=== PATIENT | female | born 1945 ===

== ENCOUNTER 2020-03-16 13:09 | Outpatient (REF) | payer MEDICARE, SELFPAY ==
--- NOTE | 2020-03-16 13:33 | CT_ITS ---
EXAMINATION: CT CHEST WITHOUT CONTRAST CLINICAL INFORMATION: Nonspecific abnormal chest finding. COMPARISON: CT chest 10/01/2019 TECHNIQUE: Multidetector volumetric CT imaging of the chest was done. Axial MIP volume rendering provided. Sagittal and coronal reformatted images were obtained. This CT examination was performed using dose optimization techniques as appropriate, variously including the following: Automated exposure control. Adjustment of mA and/or kV according to patient size (this includes techniques or standardized protocols for targeted exams where dose is matched to indication/reason for exam; i.e. extremities or head). Use of iterative reconstruction technique. DLP: 137 mGy-cm FINDINGS: TREE MARKER: Hyperinflated lungs. LUNGS: There is diffuse centrilobular emphysema without acute pneumonic consolidation. Several pulmonary nodules seen. There is an ill-defined 3 x 2 mm nodule right upper lobe axial image 137/7, previously appeared more linear density, but stable in length. There is a mild ground-glass ill-defined density left upper lobe laterally, measuring 1.8 cm on axial image 265/7, better visualized on series 8. There is 6 mm and 7 mm nodules right lower lobe axial image 412/7 and 415/7 respectively. Approximately same size as before. No additional nodules seen. There is focal atelectasis in the lingula. There is a pleural-based 4 mm nodule right lower lobe axial image 455/7, stable. No additional nodules seen. MEDIASTINUM: There is an enlarged left thyroid lobe with 2 large nodules measuring 2.6 cm anteriorly and 2.8 cm posteriorly, slightly increased in size from previous study. They measured 2.3 cm and 2.4 cm respectively. The trachea is mildly deviated to the right. The central trachea and the bronchi are otherwise widely patent. Small shotty lymph nodes in the mediastinum. Heart size and the great vessels are normal caliber. There is mild coronary artery calcifications present. No pericardial effusion. PLEURA: There is no pleural effusion. No pleural mass or thickening. AXILLA: Small shotty lymph nodes seen in the axilla. The chest wall is unremarkable. UPPER ABDOMEN: Visualized liver, spleen and pancreas are unremarkable. Gallbladder has been surgically removed. OSSEOUS STRUCTURES: No lytic or sclerotic process seen. There is mild ventral spondylosis. IMPRESSION: Diffuse centrilobular emphysema with multiple pulmonary nodules essentially stable. Largest nodule is 7 mm. As per Fleischner guideline, a follow up can be performed in 18-24 months based on risk factors. Two left thyroid lobe nodules have slightly increased in size since 10/01/2019. If clinically indicated ultrasound imaging can be performed.
== END 2020-03-16 13:10 | disposition home or self-care (01) ==
LOC: HO.CT 13:09
PROVIDERS: Visit Provider Hospitalist
DX: R91.8 Other nonspecific abnormal finding of lung field (principal)
CPT/HCPCS: 71250

== ENCOUNTER → 2020-07-23 10:20 | Outpatient (BNVA) | payer MEDICARE, SELFPAY | PROVIDERS: PCP Internal Medicine; Visit Provider Hospitalist | DX: R91.8 Other nonspecific abnormal finding of lung field (principal); J43.2 Centrilobular emphysema; J96.11 Chronic respiratory failure with hypoxia | CPT/HCPCS: 99212 ==

== ENCOUNTER 2020-11-02 13:02 | Outpatient (REF) | payer MEDICARE, SELFPAY ==
--- NOTE | ~2020-11-02 | CT_ITS ---
EXAMINATION: CT CHEST WITHOUT CONTRAST CLINICAL INFORMATION: Follow-up pulmonary nodule COMPARISON: Previous chest CT most recent February 2020 TECHNIQUE: Multidetector volumetric CT imaging of the chest was done. Axial MIP volume rendering provided. Sagittal and coronal reformatted images were obtained. This CT examination was performed using dose optimization techniques as appropriate, variously including the following: *Automated exposure control *Adjustment of mA and/or kV according to patient size (this includes techniques or standardized protocols for targeted exams where dose is matched to indication/reason for exam; i.e. extremities or head) *Use of iterative reconstruction technique DLP: 126 mGy-cm FINDINGS: LUNGS: There is evidence of emphysema. The bilateral pulmonary nodules are stable. Largest pulmonary nodules measure 6 and 7 mm in the right lower lobe axial image 406 and 412 series 7 and are stable. There is a heterogeneous cystic area in the left upper lobe with slightly thickened wall and increased peripheral groundglass attenuation. This measures 1.4 x 1.8 cm axial image 266 series 7 and is stable. No new pulmonary nodule. MEDIASTINUM: The left lobe of the thyroid gland is enlarged. There are multiple left thyroid nodules that are stable. There are small mediastinal lymph nodes. No enlarged lymph nodes are seen. The heart does not appear enlarged. There is coronary artery calcification. There is no pericardial effusion. PLEURA: There is no pleural effusion. No pleural mass or thickening. AXILLA: No lymphadenopathy. UPPER ABDOMEN: The gallbladder has been removed. OSSEOUS STRUCTURES: There are mild degenerative changes of the spine. CT/CT chest wo con IMPRESSION: Emphysema. Stable pulmonary nodules. Coronary artery calcification. Enlarged left lobe of the thyroid gland. Stable left thyroid nodules.
== END 2020-11-02 13:03 | disposition home or self-care (01) ==
LOC: HO.CT 13:02
PROVIDERS: Visit Provider Hospitalist
DX: R91.8 Other nonspecific abnormal finding of lung field (principal)
CPT/HCPCS: 71250

== ENCOUNTER → 2020-11-12 10:44 | Outpatient (BNVA) | payer MEDICARE, SELFPAY | PROVIDERS: PCP Internal Medicine; Visit Provider Hospitalist | DX: J96.11 Chronic respiratory failure with hypoxia (principal); J43.2 Centrilobular emphysema; R91.8 Other nonspecific abnormal finding of lung field | CPT/HCPCS: 99212 ==

== ENCOUNTER 2021-09-30 12:52 | Outpatient (REF) | payer MEDICARE, SELFPAY ==
--- NOTE | ~2021-09-30 | CT_ITS ---
EXAMINATION: CT CHEST WITHOUT CONTRAST CLINICAL INFORMATION: Pulmonary nodules COMPARISON: Previous chest CT most recent October 2020 TECHNIQUE: Multidetector volumetric CT imaging of the chest was done. Axial MIP volume rendering provided. Sagittal and coronal reformatted images were obtained. This CT examination was performed using dose optimization techniques as appropriate, variously including the following: *Automated exposure control *Adjustment of mA and/or kV according to patient size (this includes techniques or standardized protocols for targeted exams where dose is matched to indication/reason for exam; i.e. extremities or head) *Use of iterative reconstruction technique DLP: 145 mGy-cm FINDINGS: LUNGS: There is evidence of emphysema. There is an area of cystic and reticular change in the left upper lobe. This measures 1.2 cm in transverse and AP dimension axial image 291 series 7. This does not appear appreciably changed from previous exams. The small solid pulmonary nodules are stable. Largest solid pulmonary nodules measure 6 mm in the right lower lobe axial image 423 and 426 series 7. No new pulmonary nodule is seen. MEDIASTINUM: There the left lobe of the thyroid gland is enlarged with multiple nodules. This is stable. The heart size is normal. There is coronary artery calcification. There is no pericardial effusion. The thoracic aorta is normal in caliber. There are no enlarged hilar or mediastinal lymph nodes. PLEURA: There is no pleural effusion. No pleural mass or thickening. AXILLA: No lymphadenopathy. UPPER ABDOMEN: The gallbladder has been removed. OSSEOUS STRUCTURES: There are degenerative changes of the spine. CT/CT chest wo con IMPRESSION: Emphysema. Stable small pulmonary nodules largest measuring 6 mm in the right lower lobe. Stable area of cystic and reticular change measuring 1.2 cm in the left upper lobe. Coronary artery calcification. Fleischner guidelines were followed.
== END 2021-09-30 12:53 | disposition home or self-care (01) ==
LOC: HO.CT 12:52
PROVIDERS: PCP Internal Medicine; Visit Provider Hospitalist
DX: R91.8 Other nonspecific abnormal finding of lung field (principal)
CPT/HCPCS: 71250

== ENCOUNTER → 2021-11-09 09:36 | Outpatient (BNVA) | payer MEDICARE, SELFPAY | PROVIDERS: PCP Internal Medicine; Visit Provider Hospitalist | DX: J43.2 Centrilobular emphysema (principal); J96.11 Chronic respiratory failure with hypoxia; R91.8 Other nonspecific abnormal finding of lung field; E05.90 Thyrotoxicosis, unspecified without thyrotoxic crisis or storm; Z79.899 Other long term (current) drug therapy | CPT/HCPCS: 99212 ==

== ENCOUNTER 2021-12-28 09:49 | Outpatient (REF) | payer MEDICARE, SELFPAY ==
--- NOTE | 2021-12-28 11:13 | PFT_ITS ---
Forced vital capacity 27%, FEV1 17%. [id number] 10% and MVV 17%. Post bronchodilator therapy, there is significant improvement in all flow volumes. Lung volumes; total lung capacity 90%, residual volume 153%. Diffusion capacity is 15%. CONCLUSION: Very severe obstructive airway disorder with evidence of air trapping. Good response to bronchodilator therapy with partial reversibility. 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 Clinical correlation is recommended. MD ANNA Jain/[facility] / [id number]
== END 2021-12-28 09:50 | disposition home or self-care (01) ==
LOC: HO.RESP 09:49
PROVIDERS: PCP Internal Medicine; Visit Provider Hospitalist
DX: J43.2 Centrilobular emphysema (principal)
CPT/HCPCS: 94060; 94727; 94729

== ENCOUNTER 2022-06-30 09:36 | Outpatient (REF) | payer MEDICARE, SELFPAY ==
--- NOTE | ~2022-06-30 | CT_ITS ---
EXAMINATION: CT CHEST WITHOUT CONTRAST CLINICAL INFORMATION: Follow-up pulmonary nodules. COMPARISON: Previous chest CTs most recent 09/30/2021. TECHNIQUE: Multidetector volumetric CT imaging of the chest was done. Axial MIP volume rendering provided. Sagittal and coronal reformatted images were obtained. This CT examination was performed using dose optimization techniques as appropriate, variously including the following: *Automated exposure control *Adjustment of mA and/or kV according to patient size (this includes techniques or standardized protocols for targeted exams where dose is matched to indication/reason for exam; i.e. extremities or head) *Use of iterative reconstruction technique DLP: 121 mGy-cm FINDINGS: LUNGS: Emphysema. Biapical pleural parenchymal scarring. Unchanged area of cystic and reticular change in the left upper lobe measuring 1.4 x 1.4 cm. Multiple pulmonary nodules are stable. Largest measures 5 mm series 5 image 434. No new pulmonary nodule is seen. MEDIASTINUM: There is abnormal subcutaneous gas on the uppermost images of the scan which does not appear to be related to a skin fold. There is some subcutaneous induration same location. Recommend clinical correlation for signs of soft tissue infection. CORONARY ARTERY CALCIFICATION: Present PLEURA: There is no pleural effusion. No pleural mass or thickening. AXILLA: No lymphadenopathy. UPPER ABDOMEN: Cholecystectomy. OSSEOUS STRUCTURES: Degenerative changes in the spine. CT/CT chest wo IV con IMPRESSION: Stable pulmonary nodules. Abnormal subcutaneous air and soft tissue reticulation in the lower neck at the top most portion of the exam. Recommend clinical correlation for signs of soft tissue infection. If clinically indicated recommend CT of the neck without and with contrast. Fleischner guidelines were followed.
== END 2022-06-30 09:37 | disposition home or self-care (01) ==
LOC: HO.CT 09:36
PROVIDERS: PCP Internal Medicine; Visit Provider Hospitalist
DX: R91.8 Other nonspecific abnormal finding of lung field (principal)
CPT/HCPCS: 71250

== ENCOUNTER → 2022-08-10 09:18 | Outpatient (BNVA) | payer MEDICARE, SELFPAY | PROVIDERS: PCP Internal Medicine; Visit Provider Hospitalist | DX: J96.11 Chronic respiratory failure with hypoxia (principal); J43.2 Centrilobular emphysema; R91.8 Other nonspecific abnormal finding of lung field; Z80.1 Family history of malignant neoplasm of trachea, bronchus and lung; Z99.81 Dependence on supplemental oxygen | CPT/HCPCS: 99212 ==

== ENCOUNTER 2023-02-08 10:52 | Outpatient (AMB) | payer MEDICARE, SELFPAY ==
[2023-02-08 11:20] VITALS: BP 128/70; PULSE 85; O2SAT 97; BMI 22.1
--- NOTE | 2023-02-08 11:20 | A.OFFVIS_ITS ---
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 She continues to have dyspnea on exertion. Mild to mederate in severity. Better with rest. She is to continue using oxygen with activity. She is waiting for a portable oxygen concentrator. She cannot carry the tanks with her because they do not provide enough portability in there for dionot provide her with the oxygen supplementation that she needs. Therefore, I will request the [facility] facilitates her portable oxygen concentrator so that she can have enough oxygen supplementation while she is out of the house. She continues to participate in pulmonary rehabilitation with good results. She continues her nebulized therapy. She is not taking any inhaler therapy except for her trach beta agonist. She has tried azithromycin in the past with good effect. We did talk about Daliresp as an option but she is not interested at this time as she is having GI symptoms due to other issues. She continues to use the nebulizer 4 times a day. She continues use her oxygen with a portable oxygen concentrator on a regular basis with good effect. We did review her CT scan of the chest demonstrating multiple nodules largest 1 measuring 7 mm. I will make sure she has a rescue inhaler available. Therefore, will continue following closely her CT scan. The next CT scan will be early fall. 07/23/2020 the patient is here for pulmonary follow-up visit. Overall she is doing about the same. Continues to have dyspnea on exertion with activity. Moderate severity. The oxygen has been helpful. She continues with current respiratory regimen. She is grieving the loss of her sister who of lung cancer. She is going to have him more also worsen may with her family. In the meantime we did talk about pulmonary nodules. Largest nodule measuring 7 mm. The patient will undergo a CT scan of the chest sometime after her memorial service in September. She did stop the azithromycin. She is doing well without it and continues with the current respiratory regimen. 11/12/2020 the patient is here for pulmonary follow-up visit. She continues to have dyspnea on exertion mild in severity. The nebulized therapy has been helpful. She does use it on a daily basis. She did undergo a CT scan of the chest demonstrating multiple intermediate size pulmonary nodules. She does carry a family history of lung cancer which she is concerned about. She did well stopping the azithromycin no significant congestion of the chest. At this point will plan to follow-up in [address] scan of the chest to make sure the pulmonary nodules are not progressing. 11/09/2021 the patient is here for a pulmonary follow-up visit. Since we last spoke she has been dealing with Graves disease. He is not responding to therapy. She has lost significant amount of weight. She is scheduled to see the surgeon for potential thyroidectomy. In the meantime the patient continues to have her underlying respiratory symptoms. She has had worsening shortness of breath and chest tightness in the last few weeks likely from the spring season. She has been using the budesonide once a day. She also has been using the albuterol about 3 times a day. We did talk about trying some prednisone but the patient was reluctant to do so. Will go ahead and increase her budesonide to twice a day. Will also plan for her to undergo pulmonary function studies prior to her surgery in case the request of preop evaluation. The patient also had a CT scan of the chest in September 2021 which we personally reviewed together. It appears that she has subcentimeter pulmonary nodules that are solid in nature. Does have not changed when compared to last year's CT scan. However, she does have a left upper lobe cystic ground-glass the nodular density that does measuring more than a cm and appears to be somewhat concerning in appearance. However, appears to be a smoldering process. Will go ahead and plan to repeat the CT scan in 8-12 months. If the patient has any worsening symptoms prior to that she is to call for an earlier evaluation. 08/10/2022 the patient is here for a pulmonary follow-up visit. The patient is status post surgery she had back in May. The surgery went well. Postoperatively she did have some hypoxia but then improved. Overall she is at her baseline at this time. The area healed well. After her surgery approximately a few days she did have a CT scan of the chest to follow up with her pulmonary nodules. Because of the recent surgery she did have significant inflammation and changes in the upper chest and neck area that were consistent with her surgery. Therefore no further follow-up is warranted from that standpoint. However, the patient does have extensive emphysema on her CT scan which is very dramatic with significant air trapping hyperinflation. We did review her pulmonary function studies and she does have significant COPD very severe based on the FEV1 down to about 23%. In addition to that she has significant air trapping and very severe diffusion impairment. When she came in to the pulmonary Function Study lab she was upset because the respiratory therapist emphasize that she had to use the oxygen specially when driving based on the fact that her diffusing capacity was so low and could be dangerous. She was upset about that however, I also did emphasize the same day the patient should be using her oxygen when she is driving or she can potentially find herself in a dangerous situation which she can hurt herself or others. The patient is agreeable at this time to always have her oxygen with her when she is driving. Based on the severe degree of her pulmonary function studies off her get a venous gas this assess her CO2 to make sure that the patient does not qualify for noninvasive ventilation at nighttime. 02/08/2023 the patient is here for a pulmonary follow-up visit. The patient otherwise is about the same. Complains of dyspnea on exertion. The patient has been using the oxygen with good effect. Unfortunately her portable oxygen concentrator broke down and therefore she is had to use oxygen tanks and she is not very happy with that. She is using the oxygen for sleep. She was supposed to have blood work in addition to a venous blood gas but she has not had as of yet. She will be getting blood work elsewhere therefore I did give her add itional blood work for her to take. However, we will not be able to the blood gas. At least we can check her CO2 with a bicarbonate and see if it is stable. The reason for the blood gases to see if the patient will benefit from noninvasive ventilator. She continues use her nebulized therapy. She does use it at least twice a day. The therapy is partially helpful. Her last CT scan of the chest demonstrated stable pulmonary nodules. Therefore will readdress any additional imaging studies during the next visit. [facility] Medical History (Updated 11/09/21 @ 21:10 by Otis Arceo MD) Chronic respiratory failure Centrilobular emphysema Pulmonary nodules Social History (Updated 11/09/21 @ 09:59 by KARTHIK Schumacher) Patient Tobacco Use Status: Former Tobacco user Tobacco use type: Cigarette Years Smoked: 50 years Advance Directives Date on File: 03/16/20 Review of Systems Const Denies night sweats and Reports weight loss ENT Denies change in voice, Denies lip swelling, Denies mouth pain, Reports nasal congestion, Reports nasal discharge and Denies tongue swelling Card Denies chest pain and Reports dyspnea on exertion Resp Reports cough, Reports dyspnea on exertion and Reports wheezing GI Denies abdominal pain Musc Denies no additional complaints Skin/Breast Denies rash Neuro Denies Neuro-related abnormal movements Psych Denies no additional complaints Juan Manuel/Lymph Denies easy bleeding and Denies lymphadenopathy Aller/Immun Denies lip swelling, Denies tongue swelling and Reports wheezing Physical Exam Vital Signs: Last Vital Signs Pulse 85 02/08/23 11:20 BP 128/70 02/08/23 11:20 Pulse Ox 97 02/08/23 11:20 Oxygen Delivery Method Room Air 02/08/23 11:20 Oxygen Flow Rate 12,870 02/08/23 11:20 BMI result Body Mass Index 22.1 Const General: comfortable and alert Nutritional Appearance: underweight HEENT Head: Yes normocephalic Eyes General: appearance normal, both eyes and all related structures Neck Neck: Yes normal visual inspection, Yes full ROM and Yes no lymphadenopathy Chest Chest palpation & inspection: normal inspection of the chest Resp Effort & Inspection: normal respiratory effort Auscultation: no wheezes and diminished lung sounds Cardio Rate: regular rate Rhythm: regular rhythm Heart sounds: S1 normal heart sound present and S2 normal heart sound present GI Palpation (GI): Soft to palpation and nontender Auscultation: normal bowel sounds Skin General skin exam: no rashes or lesions noted Extrem General: No cyanosis and No edema Assessment & Plan Assessment & Plan (1) Chronic respiratory failure: Code(s): J96.10 - Chronic respiratory failure, unspecified whether with hypoxia or hypercapnia Qualifiers: Respiratory failure complication: hypoxia Qualified Code(s): J96.11 - Chronic respiratory failure with hypoxia (2) Centrilobular emphysema: Code(s): J43.2 - Centrilobular emphysema (3) Pulmonary nodules: Code(s): R91.8 - Other nonspecific abnormal finding of lung field Plan budesonide twice a day Continue albuterol 3 times a day Oxygen supplementation. Needs to use it always when driving Readdress additional imaging studies during her f/u visit bloodwork Follow-up in 6 months Medications: New levalbuterol HCl 1.25 mg (3 mL) inhalation BID 30 days 180 mL 0RF J44.9 - Chronic obstructive pulmonary disease, unspecified cetirizine (Zyrtec) 10 mg PO DAILY 30 days 30 tabs 5RF Coding Level of Care Code Est Pt Level 4 (17091) Diagnoses Chronic respiratory failure with hypoxia J96.11 Respiratory failure complication: hypoxia Centrilobular emphysema J43.2 Pulmonary nodules R91.8 Time Spent (min) 17
== END 2023-02-08 11:41 | disposition home or self-care (01) ==
PROVIDERS: PCP Internal Medicine; Visit Provider Hospitalist
DX: J96.11 Chronic respiratory failure with hypoxia (principal); J43.2 Centrilobular emphysema; R91.8 Other nonspecific abnormal finding of lung field
CPT/HCPCS: 99214

== ENCOUNTER → 2023-02-08 10:52 | Outpatient (BNVA) | payer MEDICARE, SELFPAY | PROVIDERS: PCP Internal Medicine; Visit Provider Hospitalist | DX: J96.11 Chronic respiratory failure with hypoxia (principal); R91.8 Other nonspecific abnormal finding of lung field; J43.2 Centrilobular emphysema | CPT/HCPCS: 99212 ==

== ENCOUNTER 2023-08-09 11:01 | Outpatient (AMB) | payer MEDICARE, SELFPAY ==
--- NOTE | 2023-08-09 11:07 | A.OFFVIS_ITS ---
Intake Vital Signs 08/09/23 11:10 Height 5 ft 7 in Weight 140 lb BMI 21.9 Pulse 91 Pulse Source Pulse Oximeter Pulse Oximetry (%) 97 Oxygen Delivery Method Room Air Comment 2 Liters Oxygen([facility]) Intake Visit Reasons: COPD follow-up Allergies albuterol Allergy (Severe, Verified 08/09/23 11:12) Skin Peeling sitagliptin [From Januvia] Adverse Reaction (Severe, Verified 08/09/23 11:12) Blister HPI HPI Comments History of Present Illness Details The patient is a 78 y/o woman with COPD. She continues to have dyspnea on exertion. Mild to mederate in severity. Better with rest. She is to continue using oxygen with activity. She is waiting for a portable oxygen concentrator. She cannot carry the tanks with her because they do not provide enough portability in there for dionot provide her with the oxygen supplementation that she needs. Therefore, I will request the [facility] facilitates her portable oxygen concentrator so that she can have enough oxygen supplementation while she is out of the house. She continues to participate in pulmonary rehabilitation with good results. She continues her nebulized therapy. She is not taking any inhaler therapy except for her trach beta agonist. She has tried azithromycin in the past with good effect. We did talk about Daliresp as an option but she is not interested at this time as she is having GI symptoms due to other issues. She continues to use the nebulizer 4 times a day. She continues use her oxygen with a portable oxygen concentrator on a regular basis with good effect. We did review her CT scan of the chest demonstrating multiple nodules largest 1 measuring 7 mm. I will make sure she has a rescue inhaler available. Therefore, will continue following closely her CT scan. The next CT scan will be early fall. 08/10/2022 the patient is here for a pulm onary follow-up visit. The patient is status post surgery she had back in May. The surgery went well. Postoperatively she did have some hypoxia but then improved. Overall she is at her baseline at this time. The area healed well. After her surgery mirna roximately a few days she did have a CT scan of the chest to follow up with her pulmonary nodules. Because of the recent surgery she did have significant inflammation and changes in the upper chest and neck area that were consistent with her surgery. Therefore no further follow-up is warranted from that standpoint. However, the patient does have extensive emphysema on her CT scan which is very dramatic with significant air trapping hyperinflation. We did review her pulmonary function studies and she does have significant COPD very severe based on the FEV1 down to about 23%. In addition to that she has significant air trapping and very severe diffusion impairment. When she came in to the pulmonary Function Study lab she was upset because the respiratory therapist emphasize that she had to use the oxygen specially when driving based on the fact that her diffusing capacity was so low and could be dangerous. She was upset about that however, I also did emphasize the same day the patient should be using her oxygen when she is driving or she can potentially find herself in a dangerous situation which she can hurt herself or others. The patient is agreeable at this time to always have her oxygen with her when she is driving. Based on the severe degree of her pulmonary function studies off her get a venous gas this assess her CO2 to make sure that the patient does not qualify for noninvasive ventilation at nighttime. 02/08/2023 the patient is here for a pulmonary follow-up visit. The patient otherwise is about the same. Complains of dyspnea on exertion. The patient has been using the oxygen with good effect. Unfortunately her portable oxygen concentrator broke down and therefore she is had to use oxygen tanks and she is not very happy with that. She is using the oxygen for sleep. She was supposed to have blood work in addition to a venous blood gas but she has not had as of yet. She will be getting blood work elsewhere therefore I did give her additional blood work for her to take. However, we will not be able to the blood gas. At least we can check her CO2 with a bicarbonate and see if it is stable. The reason for the blood gases to see if the patient will benefit from noninvasive ventilator. She continues use her nebulized therapy. She does use it at least twice a day. The therapy is partially helpful. Her last CT scan of the chest demonstrated stable pulmonary nodules. Therefore will readdress any additional imaging studies during the next visit. 08/09/2023 the patient is here for a pulmonary follow-up visit. She continues to use her oxygen with good effect. The patient does have dyspnea on exertion moderate severity. She typically does not do too much to try to minimize on the symptoms. The patient does have extensive emphysema. We did talk about considering a noninvasive ventilator and checking her CO2. Although she is adamant that she does want to use any kind of noninvasive ventilation at this time. Therefore hold off on checking a blood gas unless she becomes symptomatic. Also, we did look at her last CT scan of the chest. Was back in 2021. She has multiple pulmonary nodules and also extensive emphysema. Although since the patient is asymptomatic will hold off on any imaging studies. The patient is agreeable to this. If however she develops any worsening symptoms we can always repeat her imaging at that time. [facility] Medical History (Updated 11/09/21 @ 21:10 by Otis Arceo MD) Chronic respiratory failure Centrilobular emphysema Pulmonary nodules Social History (Updated 11/09/21 @ 09:59 by KARTHIK Schumacher) Patient Tobacco Use Status: Former Tobacco user Tobacco use type: Cigarette Years Smoked: 50 years Advance Directives Date on File: 03/16/20 Review of Systems Const Denies night sweats and Reports weight loss ENT Denies change in voice, Denies lip swelling, Denies mouth pain, Reports nasal congestion, Reports nasal discharge and Denies tongue swelling Card Denies chest pain and Reports dyspnea on exertion Resp Reports cough, Reports dyspnea on exertion and Reports wheezing GI Denies abdominal pain Musc Denies no additional complaints Skin/Breast Denies rash Neuro Denies Neuro-related abnormal movements Psych Denies no additional complaints Juan Manuel/Lymph Denies easy bleeding and Denies lymphadenopathy Aller/Immun Denies lip swelling, Denies tongue swelling and Reports wheezing Physical Exam Vital Signs: Last Vital Signs Pulse 91 08/09/23 11:10 Pulse Ox 97 08/09/23 11:10 Oxygen Delivery Method Room Air 08/09/23 11:10 BMI result Body Mass Index 21.9 Const General: comfortable and alert Nutritional Appearance: underweight HEENT Head: Yes normocephalic Eyes General: appearance normal, both eyes and all related structures Neck Neck: Yes normal visual inspection, Yes full ROM and Yes no lymphadenopathy Chest Chest palpation & inspection: normal inspection of the chest Resp Effort & Inspection: normal respiratory effort Auscultation: no wheezes and diminished lung sounds Cardio Rate: regular rate Rhythm: regular rhythm Heart sounds: S1 normal heart sound present and S2 normal heart sound present GI Palpation (GI): Soft to palpation and nontender Auscultation: normal bowel sounds Skin General skin exam: no rashes or lesions noted Extrem General: No cyanosis and No edema Assessment & Plan Assessment & Plan (1) Chronic respiratory failure: Code(s): J96.10 - Chronic respiratory failure, unspecified whether with hypoxia or hypercapnia Qualifiers: Respiratory failure complication: hypoxia Qualified Code(s): J96.11 - Chronic respiratory failure with hypoxia (2) Centrilobular emphysema: Code(s): J43.2 - Centrilobular emphysema (3) Pulmonary nodules: Code(s): R91.8 - Other nonspecific abnormal finding of lung field Plan budesonide twice a day Continue albuterol 3 times a day Oxygen supplementation. Needs to use it always when driving Pt agrees with holding further imaging at this time. If any symptoms worsen she will call to readdress Pt is not interested in NIV therapy Follow-up in 8-12 months Coding Level of Care Code Est Pt Level 4 (67947) Diagnoses Chronic respiratory failure with hypoxia J96.11 Respiratory failure complication: hypoxia Centrilobular emphysema J43.2 Pulmonary nodules R91.8 Time Spent (min) 16
[2023-08-09 11:10] VITALS: PULSE 91; O2SAT 97; BMI 21.9
== END 2023-08-09 11:32 | disposition home or self-care (01) ==
PROVIDERS: PCP Internal Medicine; Visit Provider Hospitalist
DX: J96.11 Chronic respiratory failure with hypoxia (principal); J43.2 Centrilobular emphysema; R91.8 Other nonspecific abnormal finding of lung field
CPT/HCPCS: 99214

== ENCOUNTER → 2023-08-09 11:01 | Outpatient (BNVA) | payer MEDICARE, SELFPAY | PROVIDERS: PCP Internal Medicine; Visit Provider Hospitalist | DX: J44.9 Chronic obstructive pulmonary disease, unspecified (principal); R91.8 Other nonspecific abnormal finding of lung field; J43.2 Centrilobular emphysema; J96.11 Chronic respiratory failure with hypoxia; Z99.81 Dependence on supplemental oxygen | CPT/HCPCS: 99212 ==

== ENCOUNTER 2024-04-04 09:19 | Outpatient (AMB) | payer MEDICARE, SELFPAY ==
[2024-04-04 09:23] VITALS: BP 120/68; PULSE 84; O2SAT 98
--- NOTE | 2024-04-04 09:23 | A.OFFVIS_ITS ---
Vital Signs 04/04/24 09:23 Weight 143 lb 4.807 oz BP 120/68 Blood Pressure Location Rt brachial Position Sitting Pulse 84 Pulse Source Pulse Oximeter Pulse Oximetry (%) 98 Oxygen Delivery Method Room Air Intake Visit Reasons: copd Allergies albuterol Allergy (Severe, Verified 04/04/24 09:27) Skin Peeling sitagliptin [From Januvia] Adverse Reaction (Severe, Verified 04/04/24 09:27) Blister Medication List - Last Reconciled 04/04/24 by Aparna Reyes LPN albuterol sulfate 2.5 mg (3 mL) inhalation Q4H PRN albuterol sulfate 90 mcg/actuation 2 puffs PO Q6H PRN budesonide 0.5 mg (2 mL) inhalation BID cetirizine (Zyrtec) 10 mg PO DAILY 30 days chlorhexidine gluconate 0.12% PO glipizide 5 mg PO BID hydrochlorothiazide 12.5 mg PO DAILY ketorolac 0.5% 1 drp ophthalmic-Right QID levalbuterol HCl 1.25 mg (3 mL) inhalation BID 30 days metformin 1,000 mg PO DAILY nebulizers As directed ofloxacin 0.3% 1 drp ophthalmic-Right QID omeprazole 20 mg PO DAILY Oxygen Home Use As directed simvastatin 20 mg PO BEDTIME HPI Comments Details: The patient is a 79 y/o woman with COPD. She continues to have dyspnea on exertion. Mild to mederate in severity. Better with rest. She is to continue using oxygen with activity. She is waiting for a portable oxygen concentrator. She cannot carry the tanks with her because they do not provide enough portability in there for dionot provide her with the oxygen supplementation that she needs. Therefore, I will request the [facility] facilitates her portable oxygen concentrator so that she can have enough oxygen supplementation while she is out of the house. She continues to participate in pulmonary rehabilitation with good results. She continues her nebulized therapy. She is not taking any inhaler therapy except for her trach beta agonist. She has tried azithromycin in the past with good effect. We did talk about Daliresp as an option but she is not interested at this time as she is having GI symptoms due to other issues. She continues to use the nebulizer 4 times a day. She continues use her oxygen with a portable oxygen concentrator on a regular basis with good effect. We did review her CT scan of the chest demonstrating multiple nodules largest 1 measuring 7 mm. I will make sure she has a rescue inhaler available. Therefore, will continue following closely her CT scan. The next CT scan will be early fall. 08/10/2022 the patient is here for a pulmonary follow-up visit. The patient is status post surgery she had back in May. The surgery went well. Postoperatively she did have some hypoxia but then improved. Overall she is at her baseline at this time. The area healed well. After her surgery approximately a few days she did have a CT scan of the chest to follow up with her pulmonary nodules. Because of the recent surgery she did have significant inflammation and changes in the upper chest and neck area that were consistent with her surgery. Therefore no further follow-up is warranted from that standpoint. However, the patient does have extensive emphysema on her CT scan which is very dramatic with significant air trapping hyperinflation. We did review her pulmonary function studies and she does have significant COPD very severe based on the FEV1 down to about 23%. In addition to that she has significant air trapping and very severe diffusion impairment. When she came in to the pulmonary Function Study lab she was upset because the respiratory therapist emphasize that she had to use the oxygen specially when driving based on the fact that her diffusing capacity was so low and could be dangerous. She was upset about that however, I also did emphasize the same day the patient should be using her oxygen when she is driving or she can potentially find herself in a dangerous situation which she can hurt herself or others. The patient is agreeable at this time to always have her oxygen with her when she is driving. Based on the severe degree of her pulmonary function studies off her get a venous gas this assess her CO2 to make sure that the patient does not qualify for noninvasive ventilation at nighttime. 02/08/2023 the patient is here for a pulmonary follow-up visit. The patient otherwise is about the same. Complains of dyspnea on exertion. The patient has been using the oxygen with good effect. Unfortunately her portable oxygen concentrator broke down and therefore she is had to use oxygen tanks and she is not very happy with that. She is using the oxygen for sleep. She was supposed to have blood work in addition to a venous blood gas but she has not had as of yet. She will be getting blood work elsewhere therefore I did give her additional blood work for her to take. However, we will not be able to the blood gas. At least we can check her CO2 with a bicarbonate and see if it is stable. The reason for the blood gases to see if the patient will benefit from noninvasive ventilator. She continues use her nebulized therapy. She does use it at least twice a day. The therapy is partially helpful. Her last CT scan of the chest demonstrated stable pulmonary nodules. Therefore will readdress any additional imaging studies during the next visit. 08/09/2023 the patient is here for a pulmonary follow-up visit. She continues to use her oxygen with good effect. The patient does have dyspnea on exertion moderate severity. She typically does not do too much to try to minimize on the symptoms. The patient does have extensive emphysema. We did talk about considering a noninvasive ventilator and checking her CO2. Although she is adamant that she does want to use any kind of noninvasive ventilation at this time. Therefore hold off on checking a blood gas unless she becomes symptomatic. Also, we did look at her last CT scan of the chest. Was back in 2021. She has multiple pulmonary nodules and also extensive emphysema. Although since the patient is asymptomatic will hold off on any imaging studies. The patient is agreeable to this. If however she develops any worsening symptoms we can always repeat her imaging at that time. 04/04/2024 the patient is here for a pulmonary follow-up visit. Overall she is doing about the same. She does have a decreased appetite. She does use the oxygen with good effect. She has the oxygen 247. The patient has been using her nebulized therapy with good effect. We did talk about considering adding Ohtovayre nebulized therapy since it will help her with her respiratory capacity. She is going to considered. She is going to read up on it. She let us know. The meantime she is going to have a chest x-ray. She will continue otherwise with current therapy. The patient will follow-up in a year's time. If she has any issues prior to that she will call for an earlier assessment. In the meantime we did talk about vaccines. She is often on not getting additional vaccines. I did try to have her consider getting the RSV vaccine as it is very important. COUNTS INCLUDE 234 BEDS AT THE [facility] Medical History (Updated 11/09/21 @ 21:10 by Otis Arceo MD) Chronic respiratory failure Centrilobular emphysema Pulmonary nodules Social History (Updated 11/09/21 @ 09:59 by KARTHIK Schumacher) Patient Tobacco Use Status: Former Tobacco user Tobacco use type: Cigarette Years Smoked: 50 years Advance Directives Date on File: 03/16/20 Review of Systems Const Denies night sweats and Reports weight loss ENT Denies change in voice, Denies lip swelling, Denies mouth pain, Reports nasal congestion, Reports nasal discharge and Denies tongue swelling Card Denies chest pain and Reports dyspnea on exertion Resp Reports cough, Reports dyspnea on exertion and Reports wheezing GI Denies abdominal pain Musc Denies no additional complaints Skin/Breast Denies rash Neuro Denies Neuro-related abnormal movements Psych Denies no additional complaints Juan Manuel/Lymph Denies easy bleeding and Denies lymphadenopathy Aller/Immun Denies lip swelling, Denies tongue swelling and Reports wheezing Physical Exam Vital Signs: Last Vital Signs Pulse 84 04/04/24 09:23 BP 120/68 04/04/24 09:23 Pulse Ox 98 04/04/24 09:23 Oxygen Delivery Method Room Air 04/04/24 09:23 Const General: comfortable and alert Nutritional Appearance: underweight HEENT Head: Yes normocephalic Eyes General: appearance normal, both eyes and all related structures Neck Neck: Yes normal visual inspection, Yes full ROM and Yes no lymphadenopathy Chest Chest palpation & inspection: normal inspection of the chest Resp Effort & Inspection: normal respiratory effort Auscultation: no wheezes and diminished lung sounds Cardio Rate: regular rate Rhythm: regular rhythm Heart sounds: S1 normal heart sound present and S2 normal heart sound present GI Palpation (GI): Soft to palpation and nontender Auscultation: normal bowel sounds Skin General skin exam: no rashes or lesions noted Extrem General: No cyanosis and No edema Assessment & Plan Assessment & Plan (1) Chronic respiratory failure: Code(s): J96.10 - Chronic respiratory failure, unspecified whether with hypoxia or hypercapnia Category: Medical Qualifiers: Respiratory failure complication: hypoxia Qualified Code(s): J96.11 - Chronic respiratory failure with hypoxia (2) Centrilobular emphysema: Code(s): J43.2 - Centrilobular emphysema Category: Medical (3) Pulmonary nodules: Code(s): R91.8 - Other nonspecific abnormal finding of lung field Category: Medical Plan budesonide twice a day Continue albuterol 3 times a day consider ohtovayre CXR Oxygen supplementation. Needs to use it always when driving Pt agrees with holding further CT imaging at this time. If any symptoms worsen she will call to readdress Pt is not interested in NIV therapy Follow-up in 8-12 months Orders: Orders XR chest 2V Today J43.2 - Centrilobular emphysema Coding Level of Care Code Est Pt Level 4 (97831) Diagnoses Chronic respiratory failure with hypoxia J96.11 Respiratory failure complication: hypoxia Centrilobular emphysema J43.2 Pulmonary nodules R91.8 Time Spent (min) 16
== END 2024-04-04 09:44 | disposition home or self-care (01) ==
LOC: HO.HPS 09:19
PROVIDERS: PCP Internal Medicine; Visit Provider Hospitalist
DX: J96.11 Chronic respiratory failure with hypoxia (principal); J43.2 Centrilobular emphysema; R91.8 Other nonspecific abnormal finding of lung field
CPT/HCPCS: 99214

== ENCOUNTER → 2024-04-04 09:19 | Outpatient (BNVA) | payer MEDICARE, SELFPAY | PROVIDERS: PCP Internal Medicine; Visit Provider Hospitalist | DX: J96.11 Chronic respiratory failure with hypoxia (principal); J43.2 Centrilobular emphysema; R91.8 Other nonspecific abnormal finding of lung field; Z99.81 Dependence on supplemental oxygen | CPT/HCPCS: 99212 ==

== ENCOUNTER 2025-04-04 12:48 | Outpatient (AMB) | payer MEDICARE, SELFPAY ==
--- OUTSIDE RECORDS SUMMARY | 2016-04-06 | XMS_ITS | Encounter Summary ---
Author Organization [facility] Address [address] [place] [id number] Phone Care Team Providers Care Builder Beam Name Role Phone Unavailable Primary Care Provider Unavailabl e Reason for Visit * MRI/CAT Scan - Closed Specialty Diagnoses / Procedures Referred By Maria M t Referred To Contact Procedures MRI Abdomen Outside With Interpretation Or Consult Terrance Celeste MD [address] [address] Phone: tel: fax: [email or web address] Referral ID Status Reason Start Date Expiration Date Visits Re quested Visits Authorized [id number] Closed 05/10/2016 05/10/2017 1 1 Encounter Details Date Type Department Care Team (Late st Contact Info) Description 04/06/2016 Hospital Encounter [facility] [address] [place] [address] Terrance Celeste MD 55 [facility] [address] [place] [phone] [email or web address] Social History Tobacco Use Types Packs/Day Years Used Date Smoking Tobacco: Former Alcohol Use Standard Drinks/Week Comments No 0 (1 standard drink = 0.6 oz pur e alcohol) Education Answer Date Recorded Are you interested in more education? Not on honey e 09/23/2022 Are you concerned about learning? Not on file 09/23/2022 No 09/23/2022 No 09/23/2022 Digital Access Answer Date Recorded No 10/24/2022 No 10/24/2022 Reliable internet access at home? Not on file 10/24/2022 Device with a working camera? Not on file Comments Unknown Sex and Gender Information Value Date Recorded Sex Assigned at Not on file Legal Sex Female 3:27 PM EST Gender Identity Not on file Sexual Orientation Not on file documented as of this encounter Plan of Treatment Not on file documented as of this encounter Procedures Procedure Name Priority Date/Time Associated Diagnosis Comments MRI ABDOMEN OUTSIDE WITH INTERPRETATION OR CONSULT Routine 04/06/2016 12:00 AM EST documented in this encounter Results * MRI Abdomen Outside With Interpretation Or Consult (04/06/2016 12:00 AM EST) 05/11/2016 8:13 AM EST Impressions [facility] - 05/11/2016 11:08 AM EST 3.6 cm cystic lesion in the pancreatic head consistent with a serous cystadenoma, with micro- and macro-cystic components. 2.8 cm cystic lesion in the pancreatic body suggestive of a macrocystic serous cystadenoma; less likely, this could represent a side-branch IPMN. Severe hepatic steatosis. RECOMMENDATION: If biopsy is clinically indicated, sampling of at least the lesion in the pancreatic body would be recommended since its imaging appearance is less typical. This report is limited to the body part and modality requested, regardless of which images were uploaded. If additional reports are required, please contact the appropriate Division of the Radiology Department. This report has been forwarded to an automated communication system which will electronically notify appropriate providers of potentially important findings. Narrative [facility] - 05/11/2016 11:08 AM EST TECHNIQUE: Interpretation of outside MR scan MR SCAN of the Abdomen WITH AND WITHOUT intravenous contrast. COMPARISON: None available. FINDINGS: LIVER: Diffuse steatosis. No focal hepatic lesions. BILIARY: No ductal dilatation. Stones in the gallbladder body and neck without evidence for acute cholecystitis. PANCREAS: There are two lobulated cystic lesions with multiple thin septations but no enhancing nodules, one in the pancreatic head measuring 3.6 cm (14:50) and the other in the pancreatic body measuring 2.8 cm (14:39); the larger one has a definite central scar with delayed enhancement and microcystic components. No communication with the main pancreatic duct is seen. 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 There is no dilatation of the main pancreatic duct. No solid masses. SPLEEN: No splenomegaly. ADRENALS: No nodules. KIDNEYS: No hydronephrosis or mass in the imaged portion of the kidneys. PERITONEUM / RETROPERITONEUM: No upper abdominal free fluid. LYMPH NODES: No upper abdominal lymphadenopathy. VESSELS: Severe aortic atherosclerosis. BONES AND SOFT TISSUES: Unremarkable. Procedure Note Gorge Duke MD - 05/11/2016 TECHNIQUE: Interpretation of outside MR scan MR SCAN of the Abdomen WITH AND WITHOUT intravenous contrast. COMPARISON: None available. FINDINGS: LIVER: Diffuse steatosis. No focal hepatic lesions. BILIARY: No ductal dilatation. Stones in the gallbladder body and neckwithout evidence for acute cholecystitis. PANCREAS: There are two lobulated cystic lesions with multiple thinseptations but no enhancing nodules, one in the pancreatic head measuring 3.6 cm(14:50) and the other in the pancreatic body measuring 2.8 cm (14:39); the largerone has a definite central scar with delayed enhancement and microcysticcomponents. No communication with the main pancreatic duct is seen. There are at leasttwo other smaller cystic lesions in the pancreatic head and tail measuring upto 0.7 cm (14:39) without clear evidence of septation or nodularity, likelyside-branch IPMNs. There is no dilatation of the main pancreatic duct. No solidmasses. SPLEEN: No splenomegaly. ADRENALS: No nodules. KIDNEYS: No hydronephrosis or mass in the imaged portion of the kidneys. PERITONEUM / RETROPERITONEUM: No upper abdominal free fluid. LYMPH NODES: No upper abdominal lymphadenopathy. VESSELS: Severe aortic atherosclerosis. BONES AND SOFT TISSUES: Unremarkable. IMPRESSION: 3.6 cm cystic lesion in the pancreatic head consistent with a serous cystadenoma, with micro- and macro-cystic components. 2.8 cm cystic lesion in the pancreatic body suggestive of a macrocysticserous cystadenoma; less likely, this could represent a side-branch IPMN. Severe hepatic steatosis. RECOMMENDATION: If biopsy is clinically indicated, sampling of at least the lesion inthe pancreatic body would be recommended since its imaging appearance isless typical. This report is limited to the body part and modality requested, regardlessof which images were uploaded. If additional reports are required, pleasecontact the appropriate Division of the Radiology Department. This report has been forwarded to an automated communication system whichwill electronically notify appropriate providers of potentially importantfindings. us Terrance Celeste MD IMG OUTSIDE IMAGING W/ INTER PRETATION Final Result [facility] [address] [place] [address] documented in this encounter Visit Diagnoses Not on filedocumented in this encounter Additional Source Comments The information contained in this document represents components of the legal health record. It is not the complete legal health record.[facility]
[2025-04-04 12:52] VITALS: BP 134/60; PULSE 91; O2SAT 96; BMI 23.8
--- NOTE | 2025-04-04 12:52 | A.OFFVIS_ITS ---
Vital Signs 04/04/25 12:52 Height 5 ft 7 in Weight 152 lb 1.903 oz BMI 23.8 BP 134/60 Blood Pressure Location Lt brachial Position Sitting Pulse 91 Pulse Source Pulse Oximeter Pulse Oximetry (%) 96 Oxygen Delivery Method Room Air Intake Visit Reasons: COPD Three Knife Trimmer Required: No Accompanied by: Self / Same As Patient Allergies albuterol Allergy (Severe, Verified 04/04/25 12:55) Skin Peeling sitagliptin (From Januvia) Adverse Reaction (Severe, Verified 04/04/25 12:55) Blister HPI Comments Details: The patient is a 80 y/o woman with COPD. She continues to have dyspnea on exertion. Mild to mederate in severity. Better with rest. She is to continue using oxygen with activity. She is waiting for a portable oxygen concentrator. She cannot carry the tanks with her because they do not provide enough portability in there for dionot provide her with the oxygen supplementation that she needs. Therefore, I will request the [facility] facilitates her portable oxygen concentrator so that she can have enough oxygen supplementation while she is out of the house. She continues to participate in pulmonary rehabilitation with good results. She continues her nebulized therapy. She is not taking any inhaler therapy except for her trach beta agonist. She has tried azithromycin in the past with good effect. We did talk about Daliresp as an option but she is not interested at this time as she is having GI symptoms due to other issues. She continues to use the nebulizer 4 times a day. She continues use her oxygen with a portable oxygen concentrator on a regular basis with good effect. We did review her CT scan of the chest demonstrating multiple nodules largest 1 measu ring 7 mm. I will make sure she has a rescue inhaler available. Therefore, will continue following closely her CT scan. The next CT scan will be early fall. 08/10/2022 the patient is here for a pulmonary follow-up visit. The patient is status post surgery she had back in May. The surgery went well. Postoperatively she did have some hypoxia but then improved. Overall she is at her baseline at this time. The area healed well. After her surgery approximately a few days she did have a CT scan of the chest to follow up with her pulmonary nodules. Because of the recent surgery she did have significant inflammation and changes in the upper chest and neck area that were consistent with her surgery. Therefore no further follow-up is warranted from that standpoint. However, the patient does have extensive emphysema on her CT scan which is very dramatic with significant air trapping hyperinflation. We did review her pulmonary function studies and she does have significant COPD very severe based on the FEV1 down to about 23%. In addition to that she has significant air trapping and very severe diffusion impairment. When she came in to the pulmonary Function Study lab she was upset because the respiratory therapist emphasize that she had to use the oxygen specially when driving based on the fact that her diffusing capacity was so low and could be dangerous. She was upset about that however, I also did emphasize the same day the patient should be using her oxygen when she is driving or she can potentially find herself in a dangerous situation which she can hurt herself or others. The patient is agreeable at this time to always have her oxygen with her when she is driving. Based on the severe degree of her pulmonary function studies off her get a venous gas this assess her CO2 to make sure that the patient does not qualify for noninvasive ventilation at nighttime. 02/08/2023 the patient is here for a pulmonary follow-up visit. The patient otherwise is about the same. Complains of dyspnea on exertion. The patient has been using the oxygen with good effect. Unfortunately her portable oxygen concentrator broke down and therefore she is had to use oxygen tanks and she is not very happy with that. She is using the oxygen for sleep. She was supposed to have blood work in addition to a venous blood gas but she has not had as of yet. She will be getting blood work elsewhere therefore I did give her additional blood work for her to take. However, we will not be able to the blood gas. At least we can check her CO2 with a bicarbonate and see if it is stable. The reason for the blood gases to see if the patient will benefit from noninvasive ventilator. She continues use her nebulized therapy. She does use it at least twice a day. The therapy is partially helpful. Her last CT scan of the chest demonstrated stable pulmonary nodules. Therefore will readdress any additional imaging studies during the next visit. 08/09/2023 the patient is here for a pulmonary follow-up visit. She continues to use her oxygen with good effect. The patient does have dyspnea on exertion moderate severity. She typically does not do too much to try to minimize on the symptoms. The patient does have extensive emphysema. We did talk about considering a noninvasive ventilator and checking her CO2. Although she is adamant that she does want to use any kind of noninvasive ventilation at this time. Therefore hold off on checking a blood gas unless she becomes symptomatic. Also, we did look at her last CT scan of the chest. Was back in 2021. She has multiple pulmonary nodules and also extensive emphysema. Although since the patient is asymptomatic will hold off on any imaging studies. The patient is agreeable to this. If however she develops any worsening symptoms we can always repeat her imaging at that time. 04/04/2024 the patient is here for a pulmonary follow-up visit. Overall she is doing about the same. She does have a decreased appetite. She does use the oxygen with good effect. She has the oxygen 247. The patient has been using her nebulized therapy with good effect. We did talk about considering adding Ohtovayre nebulized therapy since it will help her with her respiratory capacity. She is going to considered. She is going to read up on it. She let us know. The meantime she is going to have a chest x-ray. She will continue otherwise with current therapy. The patient will follow-up in a year's time. If she has any issues prior to that she will call for an earlier assessment. In the meantime we did talk about vaccines. She is often on not getting additional vaccines. I did try to have her consider getting the RSV vaccine as it is very important. 04/04/2025 the patient is here for pulmonary follow-up visit. Overall she is doing well from a respiratory status. She was started on Trelegy and seems very affecting beneficial. It is very expensive for her but she was willing to pay the cost because it is so helpful. Her cough and shortness of breath have improved dramatically. She still uses the oxygen with activity with good effect. The oxygen therapy has been affecting beneficial. No recent imaging to review. The patient right now grieving the loss of her son. This happened suddenly and she still having hard time with it. overall the patient is doing well from a respiratory status she will continue with current therapy. If the Trelegy becomes too expensive and she wants to try more cost effective option she can always call otherwise will follow-up in a year's time. If she has any other issues or concerns she can always call for further recommendations. [facility] Medical History (Updated 11/09/21 @ 21:10 by Otis Arceo MD) Chronic respiratory failure Centrilobular emphysema Pulmonary nodules Social History Patient Tobacco Use Status: Former Tobacco user Tobacco use type: Cigarette Years Smoked: 50 years Advance Directives Date on File: 03/16/20 Review of Systems Const Denies night sweats and Reports weight loss ENT Denies change in voice, Denies lip swelling, Denies mouth pain, Reports nasal congestion, Reports nasal discharge and Denies tongue swelling Card Denies chest pain and Reports dyspnea on exertion Resp Reports cough, Reports dyspnea on exertion and Reports wheezing GI Denies abdominal pain Musc Denies no additional complaints Skin/Breast Denies rash Neuro Denies Neuro-related abnormal movements Psych Denies no additional complaints Juan Manuel/Lymph Denies easy bleeding and Denies lymphadenopathy Aller/Immun Denies lip swelling, Denies tongue swelling and Reports wheezing Physical Exam Vital Signs: Last Vital Signs Pulse 91 04/04/25 12:52 BP 134/60 04/04/25 12:52 Pulse Ox 96 04/04/25 12:52 Oxygen Delivery Method Room Air 04/04/25 12:52 BMI result Body Mass Index 23.8 Const General: comfortable and alert Nutritional Appearance: underweight HEENT Head: Yes normocephalic Eyes General: appearance normal, both eyes and all related structures Neck Neck: Yes normal visual inspection, Yes full ROM and Yes no lymphadenopathy Chest Chest palpation & inspection: normal inspection of the chest Resp Effort & Inspection: normal respiratory effort Auscultation: no wheezes and diminished lung sounds Cardio Rate: regular rate Rhythm: regular rhythm Heart sounds: S1 normal heart sound present and S2 normal heart sound present GI Palpation (GI): Soft to palpation and nontender Auscultation: normal bowel sounds Skin General skin exam: no rashes or lesions noted Extrem General: No cyanosis and No edema Assessment & Plan Assessment & Plan (1) Chronic respiratory failure: Code(s): J96.10 - Chronic respiratory failure, unspecified whether with hypoxia or hypercapnia Category: Medical Qualifiers: Respiratory failure complication: hypoxia Qualified Code(s): J96.11 - Chronic respiratory failure with hypoxia (2) Centrilobular emphysema: Code(s): J43.2 - Centrilobular emphysema Category: Medical (3) Pulmonary nodules: Code(s): R91.8 - Other nonspecific abnormal finding of lung field Category: Medical Plan continue Trelegy Continue as needed consider ohtovayre Oxygen supplementation with activity Follow-up in 8-12 months Coding Level of Care Code Est Pt Level 4 (78786) Complex EM visit Add On G2211 Diagnoses Chronic respiratory failure with hypoxia J96.11 Respiratory failure complication: hypoxia Centrilobular emphysema J43.2 Pulmonary nodules R91.8 Time Spent (min) 16
--- OUTSIDE RECORDS SUMMARY | 2025-04-04 14:57 | XMS_ITS | Patient Health Record ---
[facility] [address] Address [address] [place] [address] Care Team Providers Care Application Assistant Name Role Phone TORIBIO QUINTANA Primary Care Provider JUAN SOLIS Unavailable [phone] GERDA PANDEY Unavailable [phone] Allergies No Known Allergies Results Component Value Reference Range Notes BD BONE DENSITY DXA AXIAL SK ELETON Reviewed date:10/09/2024 09:40:45 AM Interpretation: Performing Lab: Notes/Report: Note See Note [facility], a member of [employer] Patient Name: MERNA SEWELL Date of : 1945 Reason for Exam: MENOPAUSAL AND PERIMENOPAUSAL Exam Date: 09/27/2024 [id number] EST Report Status: Final Ordering Provider: TORIBIO QUINTANA PCP: TORIBIO QUINTANA History: Low estroge n state due to menopause. Personal history of fracture. Comparison: 12/05/16 Findings: Bone densitometry is performed utilizing dual energy x-ray absorptiometry (DXA) in the MobileProig[employer] unit. The lumbar spine and proximal femora are evaluated in the AP projection. The FRAX questionaire was completed. The results indicate low bone mass (osteopenia), with a right total femur T-score of -2.2. The Z score is -0.4, indicating bone mineral density within the range of normal for age. There have been statistically significant decreases in bone mineral density in the spine and bilateral total femurs since the previous study. The detailed DEXA report will be mailed to the referring physician's office. DualFemur FRAX: 10-y ear Probability of Fracture: Major Osteoporotic 21.4 percent Hip 5.8 percent. IMPRESSION: Osteopenia. [employer] [place] ([id number]) -------- FINAL REPOR T -------- Dictated By: Prudence Hammer i Dictated Date: 09/29/2024 15:11 ET Assigned Physician: Prudence Lerma Reviewed and Electronically Signed By: Prudence Lerma Signed Date: 025 15:13 ET Workstation ID: [id number] Transcribed By: Self Edit Transcribed Date: 09/29/2024 15:11 ET XR CHEST 2 VIEWS Reviewed date:05/02/2024 09:26:03 AM Interpretation: Performing Lab: Notes/Report: Note See Note [facility], a member of [employer] Patient Name: MERNA SEWELL Date of : 1945 Reason for Exam: CENTRILOBULAR EMPHYSEMA Exam Date: 04/26/2024 [id number] EST Report Status: Final Ordering Provider: MARGOT CERVANTES PCP: TORIBIO QUINTANA XR CHEST 2 VIEWS INDICATION: Emphysema TECHNIQUE: XR CHEST 2 VIEWS COMPARISON: 11/28/2023 IMPRESSION: FINDINGS/IMPRESSION: Hyperinflated lungs suggesting chronic obstructive pulmonary disease. No pneumonia or pulmonary edema. No pleural effusion or pneumothorax. Cardiac silhouette is normal in size. Bones are unremarkable. -------- FINAL REPOR T -------- Dictated By: SIERRA MARTINEZ Dictated Date: 04/26/2024 16:29 ET Assigned Physician: SIERRA MARTINEZ Reviewed and Electronically Signed By: SIERRA MARTINEZ Signed Date: 024 16:35 ET Workstation ID: [id number] Transcribed By: Self Edit Transcribed Date: 04/26/2024 16:29 ET URINALYSIS WITH REFLEX MICRO SCOPIC Reviewed date:12/02/2024 02:06:33 PM Interpretation: Performing Lab: Notes/Report: Specific [place] Urine 1.018 1.003-1.030 pH, Urine 6.5 5.0-8.0 pH Leukocytes, Urine Large Negative Nitrite, Urine Negative Negative Protein, Urine Negative <=Trace mg/dL Glucose, Urine >=1000 Negative mg/dL Ketones, Urine Negative Negative mg/dL Urobilinogen, Urine 1.0 0.2-1.0 mg/dL Bilirubin, Urine Negative Negative Blood, Urine Negative Negative RBC, Urine 1.7 0-4 /HPF WBC, Urine 15.8 0-4 /HPF Squamous Epithelial, Urine >100 0-60 /LPF Bacteria, Urine Negative Negative /HPF Hyaline Casts, Urine 6.4 0-3 /LPF HEMOGLOBIN A1C Reviewed date:12/03/2024 07:39:02 AM Interpretation: Performing Lab: Notes/Report: Hemoglobin A1C 9.9 <6.5 % Mean Bld Glu Estim. 237 THYROID STIMULATING HORMONE WITH REFLEX TO FREE T4 AND FREE T3 Reviewed date:12/02/2024 03:02:05 PM Interpretation: Performing Lab: Notes/Report: TSH 2.61 0.40-4.00 mcIU/mL COMPREHENSIVE METABOLIC PANE L Reviewed date:12/02/2024 02:06:33 PM Interpretation: Performing Lab: Notes/Report: Sodium 134 133-145 mmol/L Potassium 3.7 3.5-5.5 mmol/L Chloride 98 96-110 mmol/L CO2 30 21-32 mmol/L Anion Gap 6 3-11 Glucose 269 70-100 mg/dL BUN 15 5-25 mg/dL Creatinine 0.77 0.50-1.10 mg/dL eGFR 79 >=60 mL/min/1.73m2 Calculati on based on the Chronic Kidney Disease Epidemiology Collaboration (CKD-EPI) equation refit without adjustment for race. BUN/Creatinine Ratio 19.5 Calcium 9.4 8.5-10.5 mg/dL AST (SGOT) 15 10-42 unit/L ALT (SGPT) 27 10-60 unit/L Alkaline Phosphatase 60 42-121 unit/L Total Protein 7.1 6.0-8.0 g/dL Albumin 4.1 3.2-5.0 g/dL Total Bilirubin 1.1 0.0-1.4 mg/dL VITAMIN D 25 HYDROXY Reviewed date:12/02/2024 03:02:05 PM Interpretation: Performing Lab: Notes/Report: Vit D, 25-Hydroxy 23.3 30.0-80.0 ng/mL LIPID PANEL WITH REFLEX TO D IRECT LDL Reviewed date:12/02/2024 02:06:33 PM Interpretation: Performing Lab: Notes/Report: Cholesterol 244 0-200 mg/dL Triglycerides 208 0-150 mg/dL HDL 61 >=40 mg/dL LDL Calculated 141 0-100 mg/dL VLDL Cholesterol Driss 41.6 Non HDL Chol. (LDL+VLDL) 183 <145 mg/dL Chol/HDL Ratio 4.0 0.0-4.4 CBC WITH AUTO DIFFERENTIAL Reviewed date:12/02/2024 02:26:08 PM Interpretation: Performing Lab: Notes/Report: WBC 5.7 4.8-10.8 K/mcL RBC 5.00 3.80-4.80 M/mcL Hemoglobin 14.9 11.5-16.0 g/dL Hematocrit 44.8 35.0-47.0 % MCV 90.3 79.0-98.0 FL MCH 30.0 27.0-32.0 pcg MCHC 33.3 32.0-37.0 g/dL RDW 14.7 11.0-15.0 % Platelets 197 130-400 K/mcL MPV 11.0 7.0-11.0 FL NRBC 0.0 <1.0 % NRBC Absolute 0.00 <0.10 K/mcL Neutrophils Relative 70.4 Lymphocytes Relative 15.9 Monocytes Relative 9.1 Eosinophils Relative 3.0 Basophils Relative 0.9 Immature Granulocytes Relative 0.7 Neutrophils Absolute 4.05 1.50-7.00 K/mcL Lymphocytes Absolute 0.91 1.00-5.00 K/mcL Monocytes Absolute 0.52 0.20-1.00 K/mcL Eosinophils Absolute 0.17 0.00-0.50 K/mcL Basophils Absolute 0.05 0.00-0.20 K/mcL Immature Granulocytes Absolute 0.04 0.00-0.03 K/mcL Reason For Referral No Information Medications Medication SIG (Take, Route, Frequency, Duration) Notes Start Date End Date Status glipiZIDE 5 MG TAKE ONE TABLET BY MOUTH TWICE A DAY; Duration: 30 Active hydroCHLOROthiazide 25 MG TAKE ONE TABLE T BY MOUTH EVERY MORNING; Duration: 30 Active Trelegy Ellipta 200-62.5-25 MCG/ACT INHALE ONE PUFF BY MOUTH EVERY DAY; Duration: 30 Active Budesonide 0.25 MG/2ML 2 mL Inhalation T wice a day Active Simvastatin 20 MG TAKE ONE TABLET BY MOUTH EVERY EVENING; Duration: 90 Active EpiPen 2-Markell 0.3 MG/0.3ML as directed In jection once; Duration: 30 days 10/17/2023 Active metFORMIN HCl ER 750 MG 1 tablet with ev ening meal Orally Once a day; Duration: 90 days 02/01/2024 Active Albuterol Sulfate (2.5 MG/3M L) 0.083% 3 mL as needed Inhalation every 6 hrs Active Farxiga 10 MG 1 tablet Orally Once a day; Duration: 90 days Active Atorvastatin Calcium 40 MG 1 tablet Oral ly Once a day; Duration: 90 days Active Immunizations Vaccine Route Administration Date Status Comme nts influenza IM Intramuscular 03/02/2020 Administered influenza IM Intramuscular 03/10/2021 Administered influenza IM Intramuscular 03/14/2022 Administered influenza IM Intramuscular 04/18/2023 Administered Social History Tobacco Use: Social History Observation Description Date Details (start date - stop date) Former Smoker NA - NA Tobacco Use/Smoking Question Answer Notes Are you a former smoker How long has it been since you last smoked? > 10 years Section Notes: quit smoking 2008 quit smoking 2008 quit smoking 2008 quit smoking 2008 quit smoking 2008 quit smoking 2008 quit smoking 2008 quit smoking 2008 quit smoking 2008 quit smoking 2008 quit smoking 2008 quit smoking 2008 quit smoking 2008 quit smoking 2008 quit smoking 2008 quit smoking 2008 quit smoking 2008 quit smoking 2008 quit smoking 2008 quit smoking 2008 quit smoking 2008 Problems Problem Type SNOMED Code ICD Code Onset Dates Problem Status W/U Status Risk Notes Problem Non-toxic multinodular goiter (04914903) Nontoxic multinodular goiter (E04.2) Active confirmed Problem Type II diabetes mellitus without complication (209685280) Type 2 diabetes mellitus without complications (E11.9) Active confirmed Problem Vitamin D deficiency (79135829) Vitamin D deficiency, unspecified (E55.9) Active confirmed Problem Hyperlipidemia (20879153) Hyperlipidemia, unspecified (E78.5) Active confirmed Problem Chronic pain (79100451) Other chronic pain (G89.29) Active confirmed Problem Essential hypertension (79682991) Essential (primary) hypertension (I10) Active confirmed Problem Chronic obstructive pulmonary disease (31633561) Chronic obstructive pulmonary disease, unspecified (J44.9) Active confirmed Problem Sciatica (30752295) Lumbago with sciatica, right side (M54.41) Active confirmed Problem Dysphagia (56611839) Dysphagia, unspecified (R13.10) Active confirmed Problem Adult health examination (997027586) Encounter for general adult medical examination without abnormal findings (Z00.00) Active confirmed Problem Lipid screening (757047457) Encounter for screening for lipoid disorders (Z13.220) Active confirmed Problem Backache (636980732) Back pain, unspecified back location, unspecified back pain laterality, unspecified chronicity (M54.9) Active confirmed Problem Adult health examination (153349656) Adult general medical exam (Z00.00) Active confirmed Problem Hypothyroidism (32438143) Hypothyroidism, unspecified type (E03.9) Active confirmed Problem Shoulder joint pain (092023053) Left shoulder pain, unspecified chronicity (M25.512) Active confirmed Problem Disorder due to type 2 diabetes mellitus (922324991) Type 2 diabetes mellitus with complications (E11.8) Active confirmed Problem Arthralgia of the pelvic region and thigh (269687413) Hip pain, right (M25.551) Active confirmed Problem Diabetes mellitus screening (594333434) Diabetes mellitus screening (Z13.1) Active confirmed Problem Serum thyroid stimulating hormone level outside reference range (finding) (431942533) Abnormal TSH (R79.89) Active confirmed Problem Sciatica (20524372) Acute right-sided low back pain with right-sided sciatica (M54.41) Active confirmed Problem Avitaminosis D (26786905) Avitaminosis D (E55.9) Active confirmed Problem Endocrine/metabol ic screening (080774851) Encounter for screening for endocrine disorder (Z13.29) Active confirmed Problem Menopausal and perimenopausal disorder (N95.9) Active confirmed Problem Persistent cough (616039190) Persistent cough (R05.3) Active confirmed Problem Spinal stenosis of lumbosacral region (052118961) Spinal stenosis of lumbosacral region (M48.07) Active confirmed Vital Signs Heart Rate 80 /min 03/24/2025 Oximetry 94 % 03/24/2025 Blood pressure diastolic 74 mm Hg 03/24/2025 Height 67 in 03/24/2025 Blood pressure systolic 122 mm Hg 03/24/2025 Weight 147.0 lbs 03/24/2025 BMI 23.02 kg/m2 03/24/2025 Encounters Encounter Location Date Provider Diagnosis [facility] [facility] [address] [place] [id number] 04/04/2024 JUAN BORHOT Essential (primary) hypertension I10 ; Type 2 diabetes mellitus with complications E11.8 ; Chronic obstructive pulmonary disease, unspecified J44.9 ; Nontoxic multinodular goiter E04.2 ; Cyst of pancreas K86.2 ; Hypothyroidism, unspecified type E03.9 ; Lumbago with sciatica, right side M54.41 and Spinal stenosis of lumbosacral region M48.07 [facility] [address] [address] 06/04/2024 JUAN SOLIS Chronic obstructive pulmonary disease, unspecified J44.9 and Persistent cough R05.3 [facility] [address] [address] 08/01/2024 JUAN SOLIS Essential (primary) hypertension I10 ; Type 2 diabetes mellitus with complications E11.8 ; Chronic obstructive pulmonary disease, unspecified J44.9 ; Nontoxic multinodular goiter E04.2 ; Cyst of pancreas K86.2 ; Hypothyroidism, unspecified type E03.9 ; Lumbago with sciatica, right side M54.41 and Spinal stenosis of lumbosacral region M48.07 [facility] [address] [address] 12/03/2024 JUAN SOLIS Essential (primary) hypertension I10 ; Type 2 diabetes mellitus with complications E11.8 ; Chronic obstructive pulmonary disease, unspecified J44.9 ; Nontoxic multinodular goiter E04.2 ; Cyst of pancreas K86.2 ; Hypothyroidism, unspecified type E03.9 ; Lumbago with sciatica, right side M54.41 ; Spinal stenosis of lumbosacral region M48.07 and Encounter for examination of blood pressure without abnormal findings Z01.30 [facility] [address] [address] 02/04/2025 JUAN SOLIS Annual physical exam Z00.00 ; Encounter for screening for depression Z13.31 ; Encounter for screening for other disorder Z13.89 ; Advanced directives, counseling/discussion Z71.89 ; Essential (primary) hypertension I10 ; Type 2 diabetes mellitus with complications E11.8 ; Chronic obstructive pulmonary disease, unspecified J44.9 ; Nontoxic multinodular goiter E04.2 ; Cyst of pancreas K86.2 ; Hypothyroidism, unspecified type E03.9 ; Lumbago with sciatica, right side M54.41 ; Spinal stenosis of lumbosacral region M48.07 and Breast cancer screening by mammogram Z12.[address] [facility] [address] [place] [address] 03/24/2025 GERDA PANDEY Family history of ca ncer Z80.9 ; Chronic obstructive pulmonary disease, unspecified J44.9 ; Type 2 diabetes mellitus with complications E11.8 ; Essential (primary) hypertension I10 and Encounter for blood pressure examination Z01.30 [facility] [address] JOANIE [address] [place] [phone] 05/24/2024 TALAL QUINTANA [facility] [address] JOANIE [address] [place] [address] 05/31/2024 TALAL QUINTANA [facility] [address] [address] 06/03/2024 TALAL QUINTANA [facility] [address] JO[place]IE [address] [place] [address] 06/10/2024 JUAN SOLIS Persistent cough R05 .3 and Chronic obstructive pulmonary disease, unspecified J44.[address] [facility] [address] [place] [address] 08/23/2024 TALAL QUINTANA Encounter for screen ing for osteoporosis Z13.820 and Menopausal and perimenopausal disorder N95.9 [facility] [address] JOANIE [address] [place] [address] 10/25/2024 TALAL QUINTANA [facility] [address] [place] [address] 11/13/2024 TALAL QUINTANA [facility] [address] JO[place]IE [address] [place] [address] 02/05/2025 TALAL QUINTANA [facility] [address] JOANIE [address] [place] [address] 02/10/2025 JUAN BORHOT [facility] [address] JOANIE [address] [place] [address] 03/12/2025 JUAN SOLIS Screening for cancer Z12.9 [facility] [address] JOANIE [address] [place] [address] 2025 JUAN SOLIS Assessments Encounter Date Diagnosis (ICD Code) Assessment Notes Treatment Notes Treatment Clinical Notes Section Notes 04/04/2024 Essential (primary) hypertension (ICD-10 - I10) Acute Concerns/Problem List: 04/04/2024 Otherwise chronic conditions are stable Pain much improved, seen PSP for injections 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 Thyroid nodules are fairly benign Diabetes management, A1c today at 8.5, Downtrending Did not respond favorably to Jardiance I am okay with an A1c of 8 I do not want to be overly aggressive Of note, some information is being carried forward from prior records for informational purposes only and is being cited so that efficiency, safety and quality of the patient's care is not compromised This note was prepared using voice recognition software and direct typing Please excuse inadvertent culinary artist or typing errors, or uncorrected word substitutions Although every attempt has been made by the provider to proofread this document, occasional misspellings and typographical errors may still be present Due to the previous pandemic, and the use of personal protective equipment (PPE) This may decrease voice recognition accuracy Inadvertent culinary artist errors may occur 06/10/2024 Persistent cough (ICD-10 - R05.3) 08/01/2024 Essential (primary) hypertension (ICD-10 - I10) Acute Concerns/Problem List: 08/01/2024 _update labs Trelegy has helped with breathing. Not approved by Medicare. Hasn't needed albuterol, oxygen at night. Given Breztri Samples, will see if that is approved. 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 Thyroid nodules are fairly benign Diabetes management, A1c today at 8.5, Downtrending Did not respond favorably to Jardiance I am okay with an A1c of 8 I do not want to be overly aggressive Of note, some information is being carried forward from prior records for informational purposes only and is being cited so that efficiency, safety and quality of the patient's care is not compromised This note was prepared using voice recognition software and direct typing Please excuse inadvertent culinary artist or typing errors, or uncorrected word substitutions Although every attempt has been made by the provider to proofread this document, occasional misspellings and typographical errors may still be present Due to the previous pandemic, and the use of personal protective equipment (PPE) This may decrease voice recognition accuracy Inadvertent culinary artist errors may occur 08/23/2024 Encounter for screening for osteoporosis (ICD-10 - Z13.820) 03/12/2025 Screening for cancer (ICD-10 - Z12.9) 03/24/2025 Chronic obstructive pulmonary disease, unspecified (ICD-10 - J44.9) Merna is a pleasant 80-year-old female who presents the office for a follow-up visit with concern for hereditary genetic cancer screening. #Had a son that recently passed at 57 years old with pancreatic cancer, mother had breast cancer at 60, sister had lung cancer and brain cancer at 66, other sister had colon cancer at 65. She is alive, all other relatives are . Her niece just got diagnosed with breast cancer and lung cancer at 40, and her 2 grandchildren are BRCA positive, without active cancer at this time. Patient is postmenopausal, age of menses 15, first 22, with no hormonal replacement therapy. 1 daughter, 2 sisters, 2 maternal aunts, unknown paternal aunts. Patient has had mammogram most recent 1 beginning of this year, which was within normal limits. Will send [employer] genetic test, and call patient with result. Time spent patient 45 minutes greater than 50% of patient occasion and care coronation All quetsions answered to patients satisfaction. Patient verbalized understanding of diagnosis and treatments explained. To call sooner prior to next visit it any questions/concerns arise. Case discussed with collaborating physician Kirk Quintana who reviewed the assessment and plan. Chart, medications, labs, vital signs reviewed. Dictation was accomplished with the use of [employer] voice recognition software, prone to medical misidentifications and grammatical errors. This is unintentional and the practitioner does try to identify and correct these, but some could still be present. Please do not hesitate to contact practitioner for clarification. 03/24/2025 Family history of cancer (ICD-10 - Z80.9) Merna is a pleasant 80-year-old female who presents the office for a follow-up visit with concern for hereditary genetic cancer screening. #Had a son that recently passed at 57 years old with pancreatic cancer, mother had breast cancer at 60, sister had lung cancer and brain cancer at 66, other sister had colon cancer at 65. She is alive, all other relatives are . Her niece just got diagnosed with breast cancer and lung cancer at 40, and her 2 grandchildren are BRCA positive, without active cancer at this time. Patient is postmenopausal, age of menses 15, first 22, with no hormonal replacement therapy. 1 daughter, 2 sisters, 2 maternal aunts, unknown paternal aunts. Patient has had mammogram most recent 1 beginning of this year, which was within normal limits. Will send [employer] genetic test, and call patient with result. Time spent patient 45 minutes greater than 50% of patient occasion and care coronation All quetsions answered to patients satisfaction. Patient verbalized understanding of diagnosis and treatments explained. To call sooner prior to next visit it any questions/concerns arise. Case discussed with collaborating physician Kirk Quintana who reviewed the assessment and plan. Chart, medications, labs, vital signs reviewed. Dictation was accomplished with the use of [employer] voice recognition software, prone to medical misidentifications and grammatical errors. This is unintentional and the practitioner does try to identify and correct these, but some could still be present. Please do not hesitate to contact practitioner for clarification. 02/04/2025 Encounter for screening for depression (ICD-10 - Z13.31) Acute Concerns/Problem List: 02/04/2025 _update mammography DEXA reviewed Breathing much improved on Trelegy Recent chest CT reviewed, does see pulmonology Increase metformin to twice a day, continue glipizide 5 mg twice daily Did not fill SGLT due to cost Switch from simvastatin to atorvastatin given lipids 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 Thyroid nodules are fairly benign Of note, some information is being carried forward from prior records for informational purposes only and is being cited so that efficiency, safety and quality of the patient's care is not compromised This note was prepared using voice recognition software and direct typing Please excuse inadvertent culinary artist or typing errors, or uncorrected word substitutions Although every attempt has been made by the provider to proofread this document, occasional misspellings and typographical errors may still be present Due to the previous pandemic, and the use of personal protective equipment (PPE) This may decrease voice recognition accuracy Inadvertent culinary artist errors may occur 02/04/2025 Annual physical exam (ICD-10 - Z00.00) Acute Concerns/Problem List: 02/04/2025 _update mammography DEXA reviewed Breathing much improved on Trelegy Recent chest CT reviewed, does see pulmonology Increase metformin to twice a day, continue glipizide 5 mg twice daily Did not fill SGLT due to cost Switch from simvastatin to atorvastatin given lipids 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 Thyroid nodules are fairly benign Of note, some information is being carried forward from prior records for informational purposes only and is being cited so that efficiency, safety and quality of the patient's care is not compromised This note was prepared using voice recognition software and direct typing Please excuse inadvertent culinary artist or typing errors, or uncorrected word substitutions Although every attempt has been made by the provider to proofread this document, occasional misspellings and typographical errors may still be present Due to the previous pandemic, and the use of personal protective equipment (PPE) This may decrease voice recognition accuracy Inadvertent culinary artist errors may occur 12/03/2024 Essential (primary) hypertension (ICD-10 - I10) Acute Concerns/Problem List: 12/03/2024 We do not want to be overly aggressive in managing diabetes, however I do not want an A1c of almost 10 Will start farxiga, Can continue metformin and sulfonylurea Switch from simvastatin to atorvastatin given lipids Trelegy has helped with breathing. Recent chest CT reviewed Hasn't needed albuterol, oxygen at night. 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 Thyroid nodules are fairly benign Of note, some information is being carried forward from prior records for informational purposes only and is being cited so that efficiency, safety and quality of the patient's care is not compromised This note was prepared using voice recognition software and direct typing Please excuse inadvertent culinary artist or typing errors, or uncorrected word substitutions Although every attempt has been made by the provider to proofread this document, occasional misspellings and typographical errors may still be present Due to the previous pandemic, and the use of personal protective equipment (PPE) This may decrease voice recognition accuracy Inadvertent culinary artist errors may occur 06/04/2024 Chronic obstructive pulmonary disease, unspecified (ICD-10 - J44.9) Will get a CT of the chest without Will refer him back to pulmonology Told the patient for any chronic condition like that 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 Will start her on Trelegy and see if this helps Of note, some information is being carried forward from prior records for informational purposes only and is being cited so that efficiency, safety and quality of the patient's care is not compromised This note was prepared using voice recognition software and direct typing Please excuse inadvertent culinary artist or typing errors, or uncorrected word substitutions Although every attempt has been made by the provider to proofread this document, occasional misspellings and typographical errors may still be present Due to the previous pandemic, and the use of personal protective equipment (PPE) This may decrease voice recognition accuracy Inadvertent culinary artist errors may occur 06/04/2024 Persistent cough (ICD-10 - R05.3) Will get a CT of the chest without Will refer him back to pulmonology Told the patient for any chronic condition like that 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 Will start her on Trelegy and see if this helps Of note, some information is being carried forward from prior records for informational purposes only and is being cited so that efficiency, safety and quality of the patient's care is not compromised This note was prepared using voice recognition software and direct typing Please excuse inadvertent culinary artist or typing errors, or uncorrected word substitutions Although every attempt has been made by the provider to proofread this document, occasional misspellings and typographical errors may still be present Due to the previous pandemic, and the use of personal protective equipment (PPE) This may decrease voice recognition accuracy Inadvertent culinary artist errors may occur 12/03/2024 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 Recent chest CT reviewed Hasn't needed albuterol, oxygen at night. 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 Thyroid nodules are fairly benign Of note, some information is being carried forward from prior records for informational purposes only and is being cited so that efficiency, safety and quality of the patient's care is not compromised This note was prepared using voice recognition software and direct typing Please excuse inadvertent culinary artist or typing errors, or uncorrected word substitutions Although every attempt has been made by the provider to proofread this document, occasional misspellings and typographical errors may still be present Due to the previous pandemic, and the use of personal protective equipment (PPE) This may decrease voice recognition accuracy Inadvertent culinary artist errors may occur 02/04/2025 Encounter for screening for other disorder (ICD-10 - Z13.89) Acute Concerns/Problem List: 02/04/2025 _update mammography DEXA reviewed Breathing much improved on Trelegy Recent chest CT reviewed, does see pulmonology Increase metformin to twice a day, continue glipizide 5 mg twice daily Did not fill SGLT due to cost Switch from simvastatin to atorvastatin given lipids 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 Thyroid nodules are fairly benign Of note, some information is being carried forward from prior records for informational purposes only and is being cited so that efficiency, safety and quality of the patient's care is not compromised This note was prepared using voice recognition software and direct typing Please excuse inadvertent culinary artist or typing errors, or uncorrected word substitutions Although every attempt has been made by the provider to proofread this document, occasional misspellings and typographical errors may still be present Due to the previous pandemic, and the use of personal protective equipment (PPE) This may decrease voice recognition accuracy Inadvertent culinary artist errors may occur 03/24/2025 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 #Had a son that recently passed at 57 years old with pancreatic cancer, mother had breast cancer at 60, sister had lung cancer and brain cancer at 66, other sister had colon cancer at 65. She is alive, all other relatives are . Her niece just got diagnosed with breast cancer and lung cancer at 40, and her 2 grandchildren are BRCA positive, without active cancer at this time. Patient is postmenopausal, age of menses 15, first 22, with no hormonal replacement therapy. 1 daughter, 2 sisters, 2 maternal aunts, unknown paternal aunts. Patient has had mammogram most recent 1 beginning of this year, which was within normal limits. Will send [facility] genetic test, and call patient with result. Time spent patient 45 minutes greater than 50% of patient occasion and care coronation All quetsions answered to patients satisfaction. Patient verbalized understanding of diagnosis and treatments explained. To call sooner prior to next visit it any questions/concerns arise. Case discussed with collaborating physician Kirk Quintana who reviewed the assessment and plan. Chart, medications, labs, vital signs reviewed. Dictation was accomplished with the use of [employer] voice recognition software, prone to medical misidentifications and grammatical errors. This is unintentional and the practitioner does try to identify and correct these, but some could still be present. Please do not hesitate to contact practitioner for clarification. 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 Not approved by Medicare. Hasn't needed albuterol, oxygen at night. Given Breztri Samples, will see if that is approved. 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 Thyroid nodules are fairly benign Diabetes management, A1c today at 8.5, Downtrending Did not respond favorably to Jardiance I am okay with an A1c of 8 I do not want to be overly aggressive Of note, some information is being carried forward from prior records for informational purposes only and is being cited so that efficiency, safety and quality of the patient's care is not compromised This note was prepared using voice recognition software and direct typing Please excuse inadvertent culinary artist or typing errors, or uncorrected word substitutions Although every attempt has been made by the provider to proofread this document, occasional misspellings and typographical errors may still be present Due to the previous pandemic, and the use of personal protective equipment (PPE) This may decrease voice recognition accuracy Inadvertent culinary artist errors may occur 04/04/2024 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) Acute Concerns/Problem List: 04/04/2024 Otherwise chronic conditions are stable Pain much improved, seen PSP for injections 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 Thyroid nodules are fairly benign Diabetes management, A1c today at 8.5, Downtrending Did not respond favorably to Jardiance I am okay with an A1c of 8 I do not want to be overly aggressive Of note, some information is being carried forward from prior records for informational purposes only and is being cited so that efficiency, safety and quality of the patient's care is not compromised This note was prepared using voice recognition software and direct typing Please excuse inadvertent culinary artist or typing errors, or uncorrected word substitutions Although every attempt has been made by the provider to proofread this document, occasional misspellings and typographical errors may still be present Due to the previous pandemic, and the use of personal protective equipment (PPE) This may decrease voice recognition accuracy Inadvertent culinary artist errors may occur 04/04/2024 Chronic obstructive pulmonary disease, unspecified (ICD-10 - J44.9) Acute Concerns/Problem List: 04/04/2024 Otherwise chronic conditions are stable Pain much improved, seen PSP for injections 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 Thyroid nodules are fairly benign Diabetes management, A1c today at 8.5, Downtrending Did not respond favorably to Jardiance I am okay with an A1c of 8 I do not want to be overly aggressive Of note, some information is being carried forward from prior records for informational purposes only and is being cited so that efficiency, safety and quality of the patient's care is not compromised This note was prepared using voice recognition software and direct typing Please excuse inadvertent culinary artist or typing errors, or uncorrected word substitutions Although every attempt has been made by the provider to proofread this document, occasional misspellings and typographical errors may still be present Due to the previous pandemic, and the use of personal protective equipment (PPE) This may decrease voice recognition accuracy Inadvertent culinary artist errors may occur 08/01/2024 Chronic obstructive pulmonary disease, unspecified (ICD-10 - J44.9) Acute Concerns/Problem List: 08/01/2024 _update labs Trelegy has helped with breathing. Not approved by Medicare. Hasn't needed albuterol, oxygen at night. Given Breztri Samples, will see if that is approved. 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 Thyroid nodules are fairly benign Diabetes management, A1c today at 8.5, Downtrending Did not respond favorably to Jardiance I am okay with an A1c of 8 I do not want to be overly aggressive Of note, some information is being carried forward from prior records for informational purposes only and is being cited so that efficiency, safety and quality of the patient's care is not compromised This note was prepared using voice recognition software and direct typing Please excuse inadvertent culinary artist or typing errors, or uncorrected word substitutions Although every attempt has been made by the provider to proofread this document, occasional misspellings and typographical errors may still be present Due to the previous pandemic, and the use of personal protective equipment (PPE) This may decrease voice recognition accuracy Inadvertent culinary artist errors may occur 03/24/2025 Essential (primary) hypertension (ICD-10 - I10) Merna is a pleasant 80-year-old female who presents the office for a follow-up visit with concern for hereditary genetic cancer screening. #Had a son that recently passed at 57 years old with pancreatic cancer, mother had breast cancer at 60, sister had lung cancer and brain cancer at 66, other sister had colon cancer at 65. She is alive, all other relatives are . Her niece just got diagnosed with breast cancer and lung cancer at 40, and her 2 grandchildren are BRCA positive, without active cancer at this time. Patient is postmenopausal, age of menses 15, first 22, with no hormonal replacement therapy. 1 daughter, 2 sisters, 2 maternal aunts, unknown paternal aunts. Patient has had mammogram most recent 1 beginning of this year, which was within normal limits. Will send [facility] [facility] genetic test, and call patient with result. Time spent patient 45 minutes greater than 50% of patient occasion and care coronation All quetsions answered to patients satisfaction. Patient verbalized understanding of diagnosis and treatments explained. To call sooner prior to next visit it any questions/concerns arise. Case discussed with collaborating physician Kirk Quintana who reviewed the assessment and plan. Chart, medications, labs, vital signs reviewed. Dictation was accomplished with the use of [employer] voice recognition software, prone to medical misidentifications and grammatical errors. This is unintentional and the practitioner does try to identify and correct these, but some could still be present. Please do not hesitate to contact practitioner for clarification. 02/04/2025 Advanced directives, counseling/discus elia (ICD-10 - Z71.89) Acute Concerns/Problem List: 02/04/2025 _update mammography DEXA reviewed Breathing much improved on Trelegy Recent chest CT reviewed, does see pulmonology Increase metformin to twice a day, continue glipizide 5 mg twice daily Did not fill SGLT due to cost Switch from simvastatin to atorvastatin given lipids 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 Thyroid nodules are fairly benign Of note, some information is being carried forward from prior records for informational purposes only and is being cited so that efficiency, safety and quality of the patient's care is not compromised This note was prepared using voice recognition software and direct typing Please excuse inadvertent culinary artist or typing errors, or uncorrected word substitutions Although every attempt has been made by the provider to proofread this document, occasional misspellings and typographical errors may still be present Due to the previous pandemic, and the use of personal protective equipment (PPE) This may decrease voice recognition accuracy Inadvertent culinary artist errors may occur 12/03/2024 Chronic obstructive pulmonary disease, unspecified (ICD-10 - J44.9) Acute Concerns/Problem List: 12/03/2024 We do not want to be overly aggressive in managing diabetes, however I do not want an A1c of almost 10 Will start farxiga, Can continue metformin and sulfonylurea Switch from simvastatin to atorvastatin given lipids Trelegy has helped with breathing. Recent chest CT reviewed Hasn't needed albuterol, oxygen at night. 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 Thyroid nodules are fairly benign Of note, some information is being carried forward from prior records for informational purposes only and is being cited so that efficiency, safety and quality of the patient's care is not compromised This note was prepared using voice recognition software and direct typing Please excuse inadvertent culinary artist or typing errors, or uncorrected word substitutions Although every attempt has been made by the provider to proofread this document, occasional misspellings and typographical errors may still be present Due to the previous pandemic, and the use of personal protective equipment (PPE) This may decrease voice recognition accuracy Inadvertent culinary artist errors may occur 12/03/2024 Nontoxic multinodular goiter (ICD-10 - E04.2) Acute Concerns/Problem List: 12/03/2024 We do not want to be overly aggressive in managing diabetes, however I do not want an A1c of almost 10 Will start farxiga, Can continue metformin and sulfonylurea Switch from simvastatin to atorvastatin given lipids Trelegy has helped with breathing. Recent chest CT reviewed Hasn't needed albuterol, oxygen at night. 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 Thyroid nodules are fairly benign Of note, some information is being carried forward from prior records for informational purposes only and is being cited so that efficiency, safety and quality of the patient's care is not compromised This note was prepared using voice recognition software and direct typing Please excuse inadvertent culinary artist or typing errors, or uncorrected word substitutions Although every attempt has been made by the provider to proofread this document, occasional misspellings and typographical errors may still be present Due to the previous pandemic, and the use of personal protective equipment (PPE) This may decrease voice recognition accuracy Inadvertent culinary artist errors may occur 02/04/2025 Essential (primary) hypertension (ICD-10 - I10) Acute Concerns/Problem List: 02/04/2025 _update mammography DEXA reviewed Breathing much improved on Trelegy Recent chest CT reviewed, does see pulmonology Increase metformin to twice a day, continue glipizide 5 mg twice daily Did not fill SGLT due to cost Switch from simvastatin to atorvastatin given lipids 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 Thyroid nodules are fairly benign Of note, some information is being carried forward from prior records for informational purposes only and is being cited so that efficiency, safety and quality of the patient's care is not compromised This note was prepared using voice recognition software and direct typing Please excuse inadvertent culinary artist or typing errors, or uncorrected word substitutions Although every attempt has been made by the provider to proofread this document, occasional misspellings and typographical errors may still be present Due to the previous pandemic, and the use of personal protective equipment (PPE) This may decrease voice recognition accuracy Inadvertent culinary artist errors may occur 03/24/2025 Encounter for blood pressure examination (ICD-10 - Z01.30) Merna is a pleasant 80-year-old female who presents the office for a follow-up visit with concern for hereditary genetic cancer screening. #Had a son that recently passed at 57 years old with pancreatic cancer, mother had breast cancer at 60, sister had lung cancer and brain cancer at 66, other sister had colon cancer at 65. She is alive, all other relatives are . Her niece just got diagnosed with breast cancer and lung cancer at 40, and her 2 grandchildren are BRCA positive, without active cancer at this time. Patient is postmenopausal, age of menses 15, first 22, with no hormonal replacement therapy. 1 daughter, 2 sisters, 2 maternal aunts, unknown paternal aunts. Patient has had mammogram most recent 1 beginning of this year, which was within normal limits. Will send [facility] genetic test, and call patient with result. Time spent patient 45 minutes greater than 50% of patient occasion and care coronation All quetsions answered to patients satisfaction. Patient verbalized understanding of diagnosis and treatments explained. To call sooner prior to next visit it any questions/concerns arise. Case discussed with collaborating physician Kirk Quintana who reviewed the assessment and plan. Chart, medications, labs, vital signs reviewed. Dictation was accomplished with the use of [employer] voice recognition software, prone to medical misidentifications and grammatical errors. This is unintentional and the practitioner does try to identify and correct these, but some could still be present. Please do not hesitate to contact practitioner for clarification. 08/01/2024 Nontoxic multinodular goiter (ICD-10 - E04.2) Acute Concerns/Problem List: 08/01/2024 _update labs Trelegy has helped with breathing. Not approved by Medicare. Hasn't needed albuterol, oxygen at night. Given Breztri Samples, will see if that is approved. 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 Thyroid nodules are fairly benign Diabetes management, A1c today at 8.5, Downtrending Did not respond favorably to Jardiance I am okay with an A1c of 8 I do not want to be overly aggressive Of note, some information is being carried forward from prior records for informational purposes only and is being cited so that efficiency, safety and quality of the patient's care is not compromised This note was prepared using voice recognition software and direct typing Please excuse inadvertent culinary artist or typing errors, or uncorrected word substitutions Although every attempt has been made by the provider to proofread this document, occasional misspellings and typographical errors may still be present Due to the previous pandemic, and the use of personal protective equipment (PPE) This may decrease voice recognition accuracy Inadvertent culinary artist errors may occur 04/04/2024 Nontoxic multinodular goiter (ICD-10 - E04.2) Acute Concerns/Problem List: 04/04/2024 Otherwise chronic conditions are stable Pain much improved, seen PSP for injections 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 Thyroid nodules are fairly benign Diabetes management, A1c today at 8.5, Downtrending Did not respond favorably to Jardiance I am okay with an A1c of 8 I do not want to be overly aggressive Of note, some information is being carried forward from prior records for informational purposes only and is being cited so that efficiency, safety and quality of the patient's care is not compromised This note was prepared using voice recognition software and direct typing Please excuse inadvertent culinary artist or typing errors, or uncorrected word substitutions Although every attempt has been made by the provider to proofread this document, occasional misspellings and typographical errors may still be present Due to the previous pandemic, and the use of personal protective equipment (PPE) This may decrease voice recognition accuracy Inadvertent culinary artist errors may occur 04/04/2024 Cyst of pancreas (ICD-10 - K86.2) Acute Concerns/Problem List: 04/04/2024 Otherwise chronic conditions are stable Pain much improved, seen PSP for injections 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 Thyroid nodules are fairly benign Diabetes management, A1c today at 8.5, Downtrending Did not respond favorably to Jardiance I am okay with an A1c of 8 I do not want to be overly aggressive Of note, some information is being carried forward from prior records for informational purposes only and is being cited so that efficiency, safety and quality of the patient's care is not compromised This note was prepared using voice recognition software and direct typing Please excuse inadvertent culinary artist or typing errors, or uncorrected word substitutions Although every attempt has been made by the provider to proofread this document, occasional misspellings and typographical errors may still be present Due to the previous pandemic, and the use of personal protective equipment (PPE) This may decrease voice recognition accuracy Inadvertent culinary artist errors may occur 08/01/2024 Cyst of pancreas (ICD-10 - K86.2) Acute Concerns/Problem List: 08/01/2024 _update labs Trelegy has helped with breathing. Not approved by Medicare. Hasn't needed albuterol, oxygen at night. Given Breztri Samples, will see if that is approved. 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 Thyroid nodules are fairly benign Diabetes management, A1c today at 8.5, Downtrending Did not respond favorably to Jardiance I am okay with an A1c of 8 I do not want to be overly aggressive Of note, some information is being carried forward from prior records for informational purposes only and is being cited so that efficiency, safety and quality of the patient's care is not compromised This note was prepared using voice recognition software and direct typing Please excuse inadvertent culinary artist or typing errors, or uncorrected word substitutions Although every attempt has been made by the provider to proofread this document, occasional misspellings and typographical errors may still be present Due to the previous pandemic, and the use of personal protective equipment (PPE) This may decrease voice recognition accuracy Inadvertent culinary artist errors may occur 02/04/2025 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) Acute Concerns/Problem List: 02/04/2025 _update mammography DEXA reviewed Breathing much improved on Trelegy Recent chest CT reviewed, does see pulmonology Increase metformin to twice a day, continue glipizide 5 mg twice daily Did not fill SGLT due to cost Switch from simvastatin to atorvastatin given lipids 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 Thyroid nodules are fairly benign Of note, some information is being carried forward from prior records for informational purposes only and is being cited so that efficiency, safety and quality of the patient's care is not compromised This note was prepared using voice recognition software and direct typing Please excuse inadvertent culinary artist or typing errors, or uncorrected word substitutions Although every attempt has been made by the provider to proofread this document, occasional misspellings and typographical errors may still be present Due to the previous pandemic, and the use of personal protective equipment (PPE) This may decrease voice recognition accuracy Inadvertent culinary artist errors may occur 12/03/2024 Cyst of pancreas (ICD-10 - K86.2) Acute Concerns/Problem List: 12/03/2024 We do not want to be overly aggressive in managing diabetes, however I do not want an A1c of almost 10 Will start farxiga, Can continue metformin and sulfonylurea Switch from simvastatin to atorvastatin given lipids Trelegy has helped with breathing. Recent chest CT reviewed Hasn't needed albuterol, oxygen at night. 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 Thyroid nodules are fairly benign Of note, some information is being carried forward from prior records for informational purposes only and is being cited so that efficiency, safety and quality of the patient's care is not compromised This note was prepared using voice recognition software and direct typing Please excuse inadvertent culinary artist or typing errors, or uncorrected word substitutions Although every attempt has been made by the provider to proofread this document, occasional misspellings and typographical errors may still be present Due to the previous pandemic, and the use of personal protective equipment (PPE) This may decrease voice recognition accuracy Inadvertent culinary artist errors may occur 12/03/2024 Hypothyroidism, unspecified type (ICD-10 - E03.9) Acute Concerns/Problem List: 12/03/2024 We do not want to be overly aggressive in managing diabetes, however I do not want an A1c of almost 10 Will start farxiga, Can continue metformin and sulfonylurea Switch from simvastatin to atorvastatin given lipids Trelegy has helped with breathing. Recent chest CT reviewed Hasn't needed albuterol, oxygen at night. 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 Thyroid nodules are fairly benign Of note, some information is being carried forward from prior records for informational purposes only and is being cited so that efficiency, safety and quality of the patient's care is not compromised This note was prepared using voice recognition software and direct typing Please excuse inadvertent culinary artist or typing errors, or uncorrected word substitutions Although every attempt has been made by the provider to proofread this document, occasional misspellings and typographical errors may still be present Due to the previous pandemic, and the use of personal protective equipment (PPE) This may decrease voice recognition accuracy Inadvertent culinary artist errors may occur 02/04/2025 Chronic obstructive pulmonary disease, unspecified (ICD-10 - J44.9) Acute Concerns/Problem List: 02/04/2025 _update mammography DEXA reviewed Breathing much improved on Trelegy Recent chest CT reviewed, does see pulmonology Increase metformin to twice a day, continue glipizide 5 mg twice daily Did not fill SGLT due to cost Switch from simvastatin to atorvastatin given lipids 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 Thyroid nodules are fairly benign Of note, some information is being carried forward from prior records for informational purposes only and is being cited so that efficiency, safety and quality of the patient's care is not compromised This note was prepared using voice recognition software and direct typing Please excuse inadvertent culinary artist or typing errors, or uncorrected word substitutions Although every attempt has been made by the provider to proofread this document, occasional misspellings and typographical errors may still be present Due to the previous pandemic, and the use of personal protective equipment (PPE) This may decrease voice recognition accuracy Inadvertent culinary artist errors may occur 08/01/2024 Hypothyroidism, unspecified type (ICD-10 - E03.9) Acute Concerns/Problem List: 08/01/2024 _update labs Trelegy has helped with breathing. Not approved by Medicare. Hasn't needed albuterol, oxygen at night. Given Breztri Samples, will see if that is approved. 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 Thyroid nodules are fairly benign Diabetes management, A1c today at 8.5, Downtrending Did not respond favorably to Jardiance I am okay with an A1c of 8 I do not want to be overly aggressive Of note, some information is being carried forward from prior records for informational purposes only and is being cited so that efficiency, safety and quality of the patient's care is not compromised This note was prepared using voice recognition software and direct typing Please excuse inadvertent culinary artist or typing errors, or uncorrected word substitutions Although every attempt has been made by the provider to proofread this document, occasional misspellings and typographical errors may still be present Due to the previous pandemic, and the use of personal protective equipment (PPE) This may decrease voice recognition accuracy Inadvertent culinary artist errors may occur 04/04/2024 Hypothyroidism, unspecified type (ICD-10 - E03.9) Acute Concerns/Problem List: 04/04/2024 Otherwise chronic conditions are stable Pain much improved, seen PSP for injections 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 Thyroid nodules are fairly benign Diabetes management, A1c today at 8.5, Downtrending Did not respond favorably to Jardiance I am okay with an A1c of 8 I do not want to be overly aggressive Of note, some information is being carried forward from prior records for informational purposes only and is being cited so that efficiency, safety and quality of the patient's care is not compromised This note was prepared using voice recognition software and direct typing Please excuse inadvertent culinary artist or typing errors, or uncorrected word substitutions Although every attempt has been made by the provider to proofread this document, occasional misspellings and typographical errors may still be present Due to the previous pandemic, and the use of personal protective equipment (PPE) This may decrease voice recognition accuracy Inadvertent culinary artist errors may occur 04/04/2024 Lumbago with sciatica, right side (ICD-10 - M54.41) Acute Concerns/Problem List: 04/04/2024 Otherwise chronic conditions are stable Pain much improved, seen PSP for injections 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 Thyroid nodules are fairly benign Diabetes management, A1c today at 8.5, Downtrending Did not respond favorably to Jardiance I am okay with an A1c of 8 I do not want to be overly aggressive Of note, some information is being carried forward from prior records for informational purposes only and is being cited so that efficiency, safety and quality of the patient's care is not compromised This note was prepared using voice recognition software and direct typing Please excuse inadvertent culinary artist or typing errors, or uncorrected word substitutions Although every attempt has been made by the provider to proofread this document, occasional misspellings and typographical errors may still be present Due to the previous pandemic, and the use of personal protective equipment (PPE) This may decrease voice recognition accuracy Inadvertent culinary artist errors may occur 08/01/2024 Lumbago with sciatica, right side (ICD-10 - M54.41) Acute Concerns/Problem List: 08/01/2024 _update labs Trelegy has helped with breathing. Not approved by Medicare. Hasn't needed albuterol, oxygen at night. Given Breztri Samples, will see if that is approved. 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 Thyroid nodules are fairly benign Diabetes management, A1c today at 8.5, Downtrending Did not respond favorably to Jardiance I am okay with an A1c of 8 I do not want to be overly aggressive Of note, some information is being carried forward from prior records for informational purposes only and is being cited so that efficiency, safety and quality of the patient's care is not compromised This note was prepared using voice recognition software and direct typing Please excuse inadvertent culinary artist or typing errors, or uncorrected word substitutions Although every attempt has been made by the provider to proofread this document, occasional misspellings and typographical errors may still be present Due to the previous pandemic, and the use of personal protective equipment (PPE) This may decrease voice recognition accuracy Inadvertent culinary artist errors may occur 02/04/2025 Nontoxic multinodular goiter (ICD-10 - E04.2) Acute Concerns/Problem List: 02/04/2025 _update mammography DEXA reviewed Breathing much improved on Trelegy Recent chest CT reviewed, does see pulmonology Increase metformin to twice a day, continue glipizide 5 mg twice daily Did not fill SGLT due to cost Switch from simvastatin to atorvastatin given lipids 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 Thyroid nodules are fairly benign Of note, some information is being carried forward from prior records for informational purposes only and is being cited so that efficiency, safety and quality of the patient's care is not compromised This note was prepared using voice recognition software and direct typing Please excuse inadvertent culinary artist or typing errors, or uncorrected word substitutions Although every attempt has been made by the provider to proofread this document, occasional misspellings and typographical errors may still be present Due to the previous pandemic, and the use of personal protective equipment (PPE) This may decrease voice recognition accuracy Inadvertent culinary artist errors may occur 12/03/2024 Lumbago with sciatica, right side (ICD-10 - M54.41) Acute Concerns/Problem List: 12/03/2024 We do not want to be overly aggressive in managing diabetes, however I do not want an A1c of almost 10 Will start farxiga, Can continue metformin and sulfonylurea Switch from simvastatin to atorvastatin given lipids Trelegy has helped with breathing. Recent chest CT reviewed Hasn't needed albuterol, oxygen at night. 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 Thyroid nodules are fairly benign Of note, some information is being carried forward from prior records for informational purposes only and is being cited so that efficiency, safety and quality of the patient's care is not compromised This note was prepared using voice recognition software and direct typing Please excuse inadvertent culinary artist or typing errors, or uncorrected word substitutions Although every attempt has been made by the provider to proofread this document, occasional misspellings and typographical errors may still be present Due to the previous pandemic, and the use of personal protective equipment (PPE) This may decrease voice recognition accuracy Inadvertent culinary artist errors may occur 12/03/2024 Spinal stenosis of lumbosacral region (ICD-10 - M48.07) Acute Concerns/Problem List: 12/03/2024 We do not want to be overly aggressive in managing diabetes, however I do not want an A1c of almost 10 Will start farxiga, Can continue metformin and sulfonylurea Switch from simvastatin to atorvastatin given lipids Trelegy has helped with breathing. Recent chest CT reviewed Hasn't needed albuterol, oxygen at night. 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 Thyroid nodules are fairly benign Of note, some information is being carried forward from prior records for informational purposes only and is being cited so that efficiency, safety and quality of the patient's care is not compromised This note was prepared using voice recognition software and direct typing Please excuse inadvertent culinary artist or typing errors, or uncorrected word substitutions Although every attempt has been made by the provider to proofread this document, occasional misspellings and typographical errors may still be present Due to the previous pandemic, and the use of personal protective equipment (PPE) This may decrease voice recognition accuracy Inadvertent culinary artist errors may occur 02/04/2025 Cyst of pancreas (ICD-10 - K86.2) Acute Concerns/Problem List: 02/04/2025 _update mammography DEXA reviewed Breathing much improved on Trelegy Recent chest CT reviewed, does see pulmonology Increase metformin to twice a day, continue glipizide 5 mg twice daily Did not fill SGLT due to cost Switch from simvastatin to atorvastatin given lipids 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 Thyroid nodules are fairly benign Of note, some information is being carried forward from prior records for informational purposes only and is being cited so that efficiency, safety and quality of the patient's care is not compromised This note was prepared using voice recognition software and direct typing Please excuse inadvertent culinary artist or typing errors, or uncorrected word substitutions Although every attempt has been made by the provider to proofread this document, occasional misspellings and typographical errors may still be present Due to the previous pandemic, and the use of personal protective equipment (PPE) This may decrease voice recognition accuracy Inadvertent culinary artist errors may occur 08/01/2024 Spinal stenosis of lumbosacral region (ICD-10 - M48.07) Acute Concerns/Problem List: 08/01/2024 _update labs Trelegy has helped with breathing. Not approved by Medicare. Hasn't needed albuterol, oxygen at night. Given Breztri Samples, will see if that is approved. 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 Thyroid nodules are fairly benign Diabetes management, A1c today at 8.5, Downtrending Did not respond favorably to Jardiance I am okay with an A1c of 8 I do not want to be overly aggressive Of note, some information is being carried forward from prior records for informational purposes only and is being cited so that efficiency, safety and quality of the patient's care is not compromised This note was prepared using voice recognition software and direct typing Please excuse inadvertent culinary artist or typing errors, or uncorrected word substitutions Although every attempt has been made by the provider to proofread this document, occasional misspellings and typographical errors may still be present Due to the previous pandemic, and the use of personal protective equipment (PPE) This may decrease voice recognition accuracy Inadvertent culinary artist errors may occur 04/04/2024 Spinal stenosis of lumbosacral region (ICD-10 - M48.07) Acute Concerns/Problem List: 04/04/2024 Otherwise chronic conditions are stable Pain much improved, seen PSP for injections 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 Thyroid nodules are fairly benign Diabetes management, A1c today at 8.5, Downtrending Did not respond favorably to Jardiance I am okay with an A1c of 8 I do not want to be overly aggressive Of note, some information is being carried forward from prior records for informational purposes only and is being cited so that efficiency, safety and quality of the patient's care is not compromised This note was prepared using voice recognition software and direct typing Please excuse inadvertent culinary artist or typing errors, or uncorrected word substitutions Although every attempt has been made by the provider to proofread this document, occasional misspellings and typographical errors may still be present Due to the previous pandemic, and the use of personal protective equipment (PPE) This may decrease voice recognition accuracy Inadvertent culinary artist errors may occur 02/04/2025 Hypothyroidism, unspecified type (ICD-10 - E03.9) Acute Concerns/Problem List: 02/04/2025 _update mammography DEXA reviewed Breathing much improved on Trelegy Recent chest CT reviewed, does see pulmonology Increase metformin to twice a day, continue glipizide 5 mg twice daily Did not fill SGLT due to cost Switch from simvastatin to atorvastatin given lipids 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 Thyroid nodules are fairly benign Of note, some information is being carried forward from prior records for informational purposes only and is being cited so that efficiency, safety and quality of the patient's care is not compromised This note was prepared using voice recognition software and direct typing Please excuse inadvertent culinary artist or typing errors, or uncorrected word substitutions Although every attempt has been made by the provider to proofread this document, occasional misspellings and typographical errors may still be present Due to the previous pandemic, and the use of personal protective equipment (PPE) This may decrease voice recognition accuracy Inadvertent culinary artist errors may occur 12/03/2024 Encounter for examination of blood pressure without abnormal findings (ICD-10 - Z01.30) Acute Concerns/Problem List: 12/03/2024 We do not want to be overly aggressive in managing diabetes, however I do not want an A1c of almost 10 Will start farxiga, Can continue metformin and sulfonylurea Switch from simvastatin to atorvastatin given lipids Trelegy has helped with breathing. Recent chest CT reviewed Hasn't needed albuterol, oxygen at night. 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 Thyroid nodules are fairly benign Of note, some information is being carried forward from prior records for informational purposes only and is being cited so that efficiency, safety and quality of the patient's care is not compromised This note was prepared using voice recognition software and direct typing Please excuse inadvertent culinary artist or typing errors, or uncorrected word substitutions Although every attempt has been made by the provider to proofread this document, occasional misspellings and typographical errors may still be present Due to the previous pandemic, and the use of personal protective equipment (PPE) This may decrease voice recognition accuracy Inadvertent culinary artist errors may occur 02/04/2025 Lumbago with sciatica, right side (ICD-10 - M54.41) Acute Concerns/Problem List: 02/04/2025 _update mammography DEXA reviewed Breathing much improved on Trelegy Recent chest CT reviewed, does see pulmonology Increase metformin to twice a day, continue glipizide 5 mg twice daily Did not fill SGLT due to cost Switch from simvastatin to atorvastatin given lipids 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 Thyroid nodules are fairly benign Of note, some information is being carried forward from prior records for informational purposes only and is being cited so that efficiency, safety and quality of the patient's care is not compromised This note was prepared using voice recognition software and direct typing Please excuse inadvertent culinary artist or typing errors, or uncorrected word substitutions Although every attempt has been made by the provider to proofread this document, occasional misspellings and typographical errors may still be present Due to the previous pandemic, and the use of personal protective equipment (PPE) This may decrease voice recognition accuracy Inadvertent culinary artist errors may occur 02/04/2025 Spinal stenosis of lumbosacral region (ICD-10 - M48.07) Acute Concerns/Problem List: 02/04/2025 _update mammography DEXA reviewed Breathing much improved on Trelegy Recent chest CT reviewed, does see pulmonology Increase metformin to twice a day, continue glipizide 5 mg twice daily Did not fill SGLT due to cost Switch from simvastatin to atorvastatin given lipids 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 Thyroid nodules are fairly benign Of note, some information is being carried forward from prior records for informational purposes only and is being cited so that efficiency, safety and quality of the patient's care is not compromised This note was prepared using voice recognition software and direct typing Please excuse inadvertent culinary artist or typing errors, or uncorrected word substitutions Although every attempt has been made by the provider to proofread this document, occasional misspellings and typographical errors may still be present Due to the previous pandemic, and the use of personal protective equipment (PPE) This may decrease voice recognition accuracy Inadvertent culinary artist errors may occur 02/04/2025 Breast cancer screening by mammogram (ICD-10 - Z12.31) Acute Concerns/Problem List: 02/04/2025 _update mammography DEXA reviewed Breathing much improved on Trelegy Recent chest CT reviewed, does see pulmonology Increase metformin to twice a day, continue glipizide 5 mg twice daily Did not fill SGLT due to cost Switch from simvastatin to atorvastatin given lipids 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 Thyroid nodules are fairly benign Of note, some information is being carried forward from prior records for informational purposes only and is being cited so that efficiency, safety and quality of the patient's care is not compromised This note was prepared using voice recognition software and direct typing Please excuse inadvertent culinary artist or typing errors, or uncorrected word substitutions Although every attempt has been made by the provider to proofread this document, occasional misspellings and typographical errors may still be present Due to the previous pandemic, and the use of personal protective equipment (PPE) This may decrease voice recognition accuracy Inadvertent culinary artist errors may occur Plan Of Treatment Pending Test Test Name Order Date Mammogram 02/04/2025 Mammogram 07/08/2019 DEXA 08/23/2024 Immunohistochemical Stain(s) 03/12/2025 MRI : Abdomen with Contrast 03/03/2020 MRI : Abdomen with and without Contrast 03/03/2020 MRI : Lumbar without contrast 06/08/2023 Ultrasound : Biopsy Thyroid 06/26/2020 Ultrasound : Thyroid Sonography B-Scan 0 06/10/2020 25OH VITAMIN D 03/14/2022 BASIC METABOLIC PANEL 08/07/2020 CBC (COMPLETE BLOOD COUNT) 07/21/2021 CBC (COMPLETE BLOOD COUNT) 03/14/2022 CBC (COMPLETE BLOOD COUNT) 03/02/2020 COMPREHENSIVE METABOLIC PANEL 03/02/2020 COMPREHENSIVE METABOLIC PANEL 03/14/2022 COMPREHENSIVE METABOLIC PANEL 07/21/2021 HEMOGLOBIN A1C 10/20/2022 HEMOGLOBIN A1C 03/10/2021 HEMOGLOBIN A1C 08/07/2020 HEMOGLOBIN A1C 07/21/2021 HEMOGLOBIN A1C 12/08/2020 HEMOGLOBIN A1C 10/18/2021 HEMOGLOBIN A1C 03/14/2022 HEMOGLOBIN A1C 03/02/2020 LIPID PANEL 03/02/2020 LIPID PANEL 03/14/2022 LIPID PANEL 07/21/2021 MICROALBUMIN, URINE 03/14/2022 T4, TOTAL 03/10/2021 TSH 03/10/2021 TSH 03/14/2022 URINALYSIS W/REFLEX CULTURE 07/21/2021 URINALYSIS, COMPLETE 03/02/2020 CT Chest w/o Contrast 06/10/2024 CT Chest w/o Contrast 06/04/2024 XR Hip 2+ Views RT 04/13/2023 XR L-Spine 2-3 Views 04/13/2023 XR Shoulder 2+ Views LT 10/18/2021 LIPID PANEL, STANDARD 08/01/2024 LIPID PANEL, STANDARD 09/28/2023 COMPREHENSIVE METABOLIC PANEL 08/01/2024 COMPREHENSIVE METABOLIC PANEL 09/28/2023 CBC (INCLUDES DIFF/PLT) 09/28/2023 CBC (INCLUDES DIFF/PLT) 08/01/2024 URINALYSIS, COMPLETE 09/28/2023 URINALYSIS, COMPLETE 08/01/2024 HEMOGLOBIN A1c 08/01/2024 HEMOGLOBIN A1c 09/28/2023 T4, FREE 08/04/2022 TSH 09/28/2023 TSH W/REFLEX TO FT4 08/01/2024 VITAMIN D,25-OH,TOTAL,IA 08/01/2024 VITAMIN D,25-OH,TOTAL,IA 09/28/2023 COMPLETE URINALYSIS 03/14/2022 BRCA1 AND BRCA2 COMPREHENSIVE 03/12/2025 Next Appt Details Provider Name:JUAN SOLIS, 05/06/2025 01:30:00 PM, [address], [place] [facility], [place], [address], Insurance Providers Payer Name Payer Address Payer Phone Subscriber Number Group Number Insured Name Patient Relationship to Insured Coverage Start Date Coverage End Date Medicare Part B [id number] [address] jacques V[place] [id number] MERNA SEWELL Self - patient is the insured 1 MEDEX [address] [place] [address] [id number] MERNA SEWELL Self - patient is the insured Medical (General) History Medical History History ICD Code hyperlipidemia diabetes mellitus Arthritis skin cancer COPD Surgical History Surgery Date(Month/Year) cholecystectomy hysterectomy Thyroid surgery pancreas cyst
--- OUTSIDE RECORDS SUMMARY | 2025-04-04 14:57 | XMS_ITS ---
Author Name [facility] Organization Unknown Encounters Encounter Type Encounter Reason Primary Diagnosis Location Date Ambulatory [facility] 09/13/2024 Care Team Organization Name Specialty Phone Email Start Date End Da te [facility] Rod Bullock Primary Care 10/03/2022
--- OUTSIDE RECORDS SUMMARY | 2025-04-04 14:57 | XMS_ITS | Encounter Summary ---
Author Organization [facility] Address [address] [place] [id number] Phone Care Team Providers Care Maintenance Trainer Name Role Phone Alexis Meek MD Primary Care Provider [phone] Judith Quintana MD Primary Care Provider [phone] Encounter Details Date Type Department Care Team (Late st Contact Info) Description 05/12/2016 Procedure Pass [facility] 4 ENDO DEPT [address] [facility], 4th [place] [address] Social History Tobacco Use Types Packs/Day Years Used Date Smoking Tobacco: Former Alcohol Use Standard Drinks/Week Comments No 0 (1 standard drink = 0.6 oz pur e alcohol) Comments Unknown Sex and Gender Information Value Date Recorded Sex Assigned at Not on file Legal Sex Female 3:27 PM EST Gender Identity Not on file Sexual Orientation Not on file documented as of this encounter Plan of Treatment Not on file documented as of this encounter Visit Diagnoses Not on filedocumented in this encounter Care Teams Maintenance Trainer Relationship Specialty Start Date End Date Alexis Meek MD PCP - General Internal Medicine 04/08/16 02/04/24 Judith Quintana MD [address] [place] [address] [address] [place] [address] PCP - General Internal Medicine 02/05/24 documented as of this encounter Additional Source Comments The information contained in this document represents components of the legal health record. It is not the complete legal health record.[facility]
--- OUTSIDE RECORDS SUMMARY | 2025-04-04 14:57 | XMS_ITS | Clinical Summary ---
Author Organization [facility] Address [address] [place] [address] Phone Care Team Providers Care Brake Tester Name Role Phone Judith Quintana MD Primary Care Provider [phone] Allergies No known active allergies Medications hydroCHLOROthia zide (HYDRODIURIL) 25 MG tablet Take 25 mg by mouth daily. Active simvastatin (ZOCOR) 20 MG tablet Take 20 mg by mouth nightly. Active glipiZIDE (GLUCOTROL) 5 MG tablet Take 5 mg by mouth daily. Active albuterol 90 mcg/actuation inhaler INHALE TWO PUFFS BY MOUTH EVERY 6 HOURS NEEDED FOR SHORTNESS OF BREATH OR WHEEZING 3 Active albuterol 2.5 mg /3 mL (0.083 %) nebulizer solution INHALE THE CONTENTS OF 1 VIAL VIA NEBULIZER EVERY 4 HOURS NEEDED WHEEZING ___ OF 3 3 Active budesonide (PULMICORT) 0.5 mg/2 mL nebulizer solution 3 Active ketorolac (ACULAR) 0.5 % ophthalmic solution INSTILL ONE DROP INTO THE RIGHT EYE FOUR TIMES A DAY 3 Active omeprazole (PRILOSEC) 20 MG capsule Take 20 mg by mouth 2 (two) times a day. 3 Active SITagliptin phosphate (JANUVIA) 50 MG tablet Take 1 tablet by mouth daily. 3 Active metFORMIN (GLUCOPHAGE) 1000 MG tablet Take 1,000 mg by mouth. 3 Active metFORMIN (GLUCOPHAGE-XR) 750 MG 24 hr tablet Take 750 mg by mouth daily with dinner. Active EPINEPHrine (EPIPEN) 0.3 mg/0.3 mL auto-injector Inject 0.3 mg into the muscle once as needed for anaphylaxis (Bees). 4 Active Active Problems Problem Noted Date Diagnosed Date Multinodular goiter 09/06/2022 Assessment & Plan (09/06/2022 4:28 PM EDT): 77-year-old with a history of right thyroid surgery in 1969 for a presumed benign lesion. She presented in 2021 with choking sensation and enlarged left sided goiter. Because of her compression symptoms she had left thyroid lobectomy at the end of 05/2022. At the time of surgery she was told that only a portion of her right thyroid lobe was removed and she has a remnant thyroid tissue there which was left in place. The surgical pathology was reported benign, on waiting for the report. Her blood work on 08/04/2022 reported only a free T4 which was low normal at 0.91. Clinically she may be slightly hypothyroid. We decided to repeat her thyroid function test today. We discussed possible need for levothyroxine replacement and the proper administration of this medication. We reviewed symptoms of under and over replacement we will contact patient with TFTs and further management. History of partial thyroidectomy 09/06/2022 Assessment & Plan (02/09/2023 4:35 PM EDT): 77-year-old woman with history of right thyroid surgery in 1969 for a presumed benign lesion. She presented in 2021 with choking sensation and enlarged left sided goiter. Because of her compression symptoms she had left thyroid lobectomy at the end of 05/2022. At the time of surgery she was told that only a portion of her right thyroid lobe was removed with the first surgery and she has a remnant thyroid tissue there which was left in place at the time of the 2nd surgery.The surgical pathology was reported benign, waiting for the report. She is clinically euthyroid. Last TSH was normal 2.13 in 08/2022 without any thyroid hormone replacement. She had blood work by her PCP in October, obtain result. We discussed symptoms of under and overactive thyroid, patient to call if concerned. Otherwise would add TSH to next labs by PCP in 02/2023. Patient will call for the results. Family History Relation Status Comments Daughter Alive Social History Tobacco Use Types Packs/Day Years Used Date Smoking Tobacco: Former Tobacco Cessation:Counseling Given: Not Answered Alcohol Use Standard Drinks/Week Comments No 0 [...] on file Sexual Orientation Not on file Last Filed Vital Signs Vital Sign Reading Time Taken Comments Blood Pressure 118/68 02/05/2024 1:49 PM EDT Pulse 90 02/05/2024 1:49 PM EDT Temperature 36.2 C (97.2 F) 01/09/2023 2:39 PM EDT Respiratory Rate 18 05/12/2016 6:07 PM EST Oxygen Saturation 98% 01/09/2023 2:39 PM EDT Inhaled Oxygen Concentration - - Weight 63 kg (139 lb) 02/05/2024 1:49 PM EDT Height 171.8 cm (5' 7.64 ) 01/09/2023 2:39 PM ED T Body Mass Index 21.36 01/09/2023 2:39 PM EDT Plan of Treatment Health Maintenance Due Date Last Done Comments Adult Td,Tdap Booster 1946 CREATININE LEVEL 1946 LIPID PANEL 1946 POTASSIUM LEVEL 1946 DEPRESSION SCREENING 1958 SMOKING Hx and SMOKELESS TOBACCO SCREENING 1959 HEPATITIS C SCREENING 1964 PNEUMOCOCCAL VACCINES (50+ years) (1 of 1 - PCV) 1996 ZOSTER VACCINES (1 of 2) 1996 OSTEOPOROSIS SCREENING INITI AL (ONE-TIME) 2011 RSV VACCINE (1 - 1-dose 75+ series) 2021 INFLUENZA VACCINE (#1) 2024 9, 05/01/2018, 06/08/2012 COVID-19 VACCINE (2024-2 6 season) 2025 07/31/2020, 07/10/2020 HEPATITIS A VACCINES Aged Out No long er eligible based on patient's age to complete this topic HIB VACCINES Aged Out No longer eligi ble based on patient's age to complete this topic MENINGOCOCCAL VACCINES (ACWY) Aged Out No longer eligible based on patient's age to complete this topic MENINGOCOCCAL VACCINES (B) Aged Out N o longer eligible based on patient's age to complete this topic Medical Devices Not on file Insurance MEDICARE PART A & B [employer] SUPPLEMENT MEDICARE PART A & B [employer] MEDEX SUPPLEMENT MEDICARE PART A & B [employer] SUPPLEMENT MEDICARE PART A & B [employer] SUPPLEMENT MEDICARE PART A & B [employer] MED[employer] SUPPLEMENT MEDICARE PART A & B [facility] MEDEX SUPPLEMENT MEDICARE PART A & B [employer] SUPPLEMENT MEDICARE PART A & B [employer] SUPPLEMENT MEDICARE PART A & B [employer] MEDEX SUPPLEMENT Care Teams Brake Tester Relationship Specialty Start Date End Date Judith Quintana MD [address] [place] [address] PCP - General Internal Medicine 02/05/24 Additional Source Comments The information contained in this document represents components of the legal health record. It is not the complete legal health record.[facility]
--- OUTSIDE RECORDS SUMMARY | 2025-04-04 14:58 | XMS_ITS | Encounter Summary ---
Author Organization [facility] Address [address] [place] [address] Phone Care Team Providers Care Supervisor [employer] Name Role Phone Alexis Meek MD Primary Care Provider +- [phone] Judith Quintana MD Primary Care Provider [phone] Encounter Details Date Type Department Care Team (Late st Contact Info) Description 05/10/2016 Procedure Pass [facility] [address] [place] [address] Social History Tobacco Use Types Packs/Day Years [...] on filedocumented in this encounter Care Teams Supervisor [employer] Relationship Specialty Start Date End Date Alexis Meek MD PCP - General Internal Medicine 04/08/16 02/04/24 Judith Quintana MD [address] [place] [address] [address] [place] [address] PCP - General Internal Medicine 02/05/24 documented as of this encounter Additional Source Comments The information contained in this document represents components of the legal health record. It is not the complete legal health record.[facility]
== END 2025-04-04 13:24 | disposition home or self-care (01) ==
LOC: HO.HPS 12:49
PROVIDERS: PCP Internal Medicine; Visit Provider Hospitalist
DX: J96.11 Chronic respiratory failure with hypoxia (principal); J43.2 Centrilobular emphysema; R91.8 Other nonspecific abnormal finding of lung field
CPT/HCPCS: 99214; G2211

== ENCOUNTER → 2025-04-04 12:48 | Outpatient (BNVA) | payer MEDICARE, SELFPAY | PROVIDERS: PCP Internal Medicine; Visit Provider Hospitalist | DX: J96.11 Chronic respiratory failure with hypoxia (principal); J43.2 Centrilobular emphysema; R91.8 Other nonspecific abnormal finding of lung field | CPT/HCPCS: 99212 ==